=== PATIENT | male | born 1935 | race Caucasian/White ===

== ENCOUNTER 2017-11-26 18:28 | Emergency (ER) | payer OTHER ==
[~2017-11-26] VITALS: Ht 175.3 cm; Wt 94.6 kg
[~2017-11-26 18:28] MED LIST: AMLO5TAB22 PO; ECOT81TA2 PO; GLIM4TAB PO; LOSA25TA31 PO; MELA10CA PO; METF-324 PO; PRAV20 PO; TAB-TAB PO; TYLE500T PO; VITA20002 PO
[2017-11-26 18:31] VITALS: BP 149/76; PULSE 84; RESP 18; TEMP 99.2; O2SAT 93
[2017-11-26] MEDS ORDERED: LOSA25TA PO (19:03)
[2017-11-26] MEDS ORDERED: PRAV20TA2 PO (19:03)
[2017-11-26] MEDS ORDERED: VITA100021 SL (19:03)
[2017-11-26] MEDS ORDERED: CLOP75TA PO (19:03)
[2017-11-26] MEDS ORDERED: METF1000 PO (19:03)
[2017-11-26] MEDS ORDERED: CARV6.252 PO (19:03)
[2017-11-26] MEDS ORDERED: SITA1TAB2 PO (19:03)
[2017-11-26] MEDS ORDERED: GLIM4TAB PO (19:03)
[2017-11-26] MEDS ORDERED: ATOR20TA15 PO (19:03)
[2017-11-26] MEDS ORDERED: HYDR-3133 PO (19:03)
[2017-11-26] MEDS ORDERED: TRAZ50TA12 PO (19:03)
--- NOTE | 2017-11-26 19:23 | PD ---
HPI Chief Complaint: Fall Time Seen by Provider: 19:08 Travel History International Travel<30 days: No Contact w/Intl Traveler<30days: No Traveled to known affect area: No History of Present Illness HPI 82-year-old male complains of feeling unbalanced this evening. Patient states that he fell backwards yesterday and hit the back of the head. Patient denies loss of consciousness. Patient complained of mild aching pain in the back of the head. Patient denies any visual change. Patient denies any neck pain. Patient denies any chest pain or shortness of breath. Patient denies abdominal pain. Patient denies any focal weakness or numbness of the extremity. Patient denies any nausea vomiting. Patient has history of CVA in the past. Patient is on Plavix. Patient also has history of diabetes, CAD status post ME, CABG, hyperlipidemia. PFSH Past Medical History Hx Anticoagulant Therapy: Yes (CLOPEDIGREL) Cancer: No Cardiovascular Problems: Yes (HX [place] 1994 ) High Cholesterol: Yes Cerebrovascular Accident: Yes Diabetes: Yes (TYPE II ) Patient Takes Glucophage: Yes Endocrine: Yes Glaucoma: No Genitourinary: Yes (TURP) Hepatitis: No Hiatal Hernia: No Hypertension: Yes Immune Disorder: No Musculoskeletal: Yes (RIGHT ROTATOR CUFF TEAR; ARTHRITIS ANIRUDH THUMBS ) Neurologic: No Psychiatric: No Respiratory: No Thyroid Disease: No Tetanus Vaccination: < 5 Years Influenza Vaccination: Yes Past Surgical History Abdominal Surgery: Yes (LAP CHOLECY ) AICD: No Body Medical Devices: NONE Cardiac Surgery: Yes (CABG 1994) Cholecystectomy: Yes Coronary Artery Bypass Graft: Yes (X 3) Ear Surgery: No Endocrine Surgery: No Eye Surgery: Yes (BILATERAL CATARACTS WITH LENS IMPLANT ) Genitourinary Surgery: Yes (TURP ) Joint Replacement: No Oral Surgery: No Pacemaker: No Thoracic Surgery: No Other Surgery: Yes Social History Alcohol Use: Yes (OCCAS) Tobacco Use: No Substance Use: No Allergies-Medications (Allergen,Severity, Reaction): Coded Allergies: No Known Allergies (Verified Adverse Reaction, Unknown, 11/26/17) Reported Meds & Prescriptions Reported Meds & Active Scripts Active Reported Vitamin B-12 (Cyanocobalamin) 1,000 Mcg Subl 1,000 Mcg SL DAILY Trazodone (Trazodone HCl) 50 Mg Tab 50 Mg PO HS Pravastatin 20 Mg Tab 20 Mg PO DAILY Metformin (Metformin HCl) 1,000 Mg Tab 1,000 Mg PO DAILY With a meal Losartan (Losartan Potassium) 25 Mg Tab 25 Mg PO DAILY Januvia (Sitagliptin Phosphate) 100 Mg Tab 100 Mg PO DAILY Atorvastatin (Atorvastatin Calcium) 20 Mg Tab 20 Mg PO HS Hydroxyzine HCl 25 Mg Tab 25 Mg PO HS Glimepiride 4 Mg Tab 4 Mg PO DAILY Take with breakfast or first main meal Clopidogrel (Clopidogrel Bisulfate) 75 Mg Tab 75 Mg PO DAILY Carvedilol 6.25 Mg Tab 6.25 Mg PO BID Review of Systems General / Constitutional: No: Fever Eyes: No: Visual changes HENT: No: Headaches Cardiovascular: No: Chest Pain or Discomfort Respiratory: No: Shortness of Breath Gastrointestinal: No: Abdominal Pain Genitourinary: No: Dysuria Musculoskeletal: No: Pain Skin: No Rash Neurologic: No: Weakness Psychiatric: No: Depression Endocrine: No: Polydipsia Hematologic/Lymphatic: No: Easy Bruising Physical Exam Narrative GENERAL: Well-nourished, well-developed patient. SKIN: Focused skin assessment warm/dry. HEAD: Normocephalic. EYES: No scleral icterus. No injection or drainage. Pupil 2 mm equal reactive. NECK: Supple, trachea midline. No JVD or lymphadenopathy. CARDIOVASCULAR: Regular rate and rhythm without murmurs, gallops, or rubs. RESPIRATORY: Breath sounds equal bilaterally. No accessory muscle use. GASTROINTESTINAL: Abdomen soft, non-tender, nondistended. MUSCULOSKELETAL: No cyanosis, or edema. BACK: Nontender without obvious deformity. No CVA tenderness. Neurologic exam: Patient is awake and alert oriented 3. Patient moves all extremity well. No obvious focal neurological deficit. Data Data Last Documented VS Vital Signs Date Time Temp Pulse Resp B/P (MAP) Pulse Ox O2 Delivery O2 Flow Rate FiO2 11/26/17 19:41 93 Room Air 11/26/17 19:40 81 16 11/26/17 18:31 99.2 Orders Orders Electrocardiogram (11/26/17 19:17) Complete Blood Count With Diff (11/26/17 19:17) Comprehensive Metabolic Panel (11/26/17 19:17) Prothrombin Time / Inr (Pt) (11/26/17 19:17) Act Partial Throm Time (Ptt) (11/26/17 19:17) Ct Brain W/O Iv Contrast(Rout) (11/26/17 19:17) Iv Access Insert/Monitor (11/26/17 19:17) Ecg Monitoring (11/26/17 19:17) Oximetry (11/26/17 19:17) Ed Discharge Order (11/26/17 20:15) Labs Laboratory Tests Test 11/26/17 19:20 White Blood Count 8.1 TH/MM3 Red Blood Count 4.63 MIL/MM3 Hemoglobin 14.4 GM/DL Hematocrit 43.1 % Mean Corpuscular Volume 93.0 FL Mean Corpuscular Hemoglobin 31.0 PG Mean Corpuscular Hemoglobin Concent 33.3 % Red Cell Distribution Width 12.0 % Platelet Count 210 TH/MM3 Mean Platelet Volume 7.5 FL Neutrophils (%) (Auto) 70.8 % Lymphocytes (%) (Auto) 12.8 % Monocytes (%) (Auto) 15.2 % Eosinophils (%) (Auto) 0.3 % Basophils (%) (Auto) 0.9 % Neutrophils # (Auto) 5.8 TH/MM3 Lymphocytes # (Auto) 1.0 TH/MM3 Monocytes # (Auto) 1.2 TH/MM3 Eosinophils # (Auto) 0.0 TH/MM3 Basophils # (Auto) 0.1 TH/MM3 CBC Comment DIFF FINAL Differential Comment Prothrombin Time 11.6 SEC Prothromb Time International Ratio 1.1 RATIO Activated Partial Thromboplast Time 24.6 SEC Blood Urea Nitrogen 11 MG/DL Creatinine 1.10 MG/DL Random Glucose 144 MG/DL Total Protein 8.1 GM/DL Albumin 4.1 GM/DL Calcium Level 9.5 MG/DL Alkaline Phosphatase 53 U/L Aspartate Amino Transf (AST/SGOT) 28 U/L Alanine Aminotransferase (ALT/SGPT) 35 U/L Total Bilirubin 2.0 MG/DL Sodium Level 133 MEQ/L Potassium Level 3.9 MEQ/L Chloride Level 98 MEQ/L Carbon Dioxide Level 26.0 MEQ/L Anion Gap 9 MEQ/L Estimat Glomerular Filtration Rate 64 ML/MIN [facility] Medical Decision Making Medical Screen Exam Complete: Yes Emergency Medical Condition: Yes Interpretation(s) 1958 PM. CBC within normal limits. CMP with sodium 133. Total bili 2.0. EKG shows sinus rhythm with T-wave inversion in lead I, lead II, aVL, V2 to V6. Differential Diagnosis Differential diagnosis including contusion, concussion, intracranial hemorrhage. Narrative Course 82-year-old male with head injury. Patient is on Plavix. Diagnosis Primary Impression: Closed head injury Qualified Codes: S09.90XA - Unspecified injury of head, initial encounter Patient Instructions: General Instructions Additional Instructions: Head trauma instructions given. Continue with all medications. Follow-up with personal physician. Return if persistent problem or worse. Tylenol for headache. Med/Other Pt SpecificInfo: No Change to Meds Disposition: 01 DISCHARGE HOME Condition: Stable Curry Colindres MD Nov 26, 2017 19:23
[2017-11-26 19:32] LABS: AUTOMATED NEUTROPHIL # 5.8 TH/MM3 (1.8-7.7); BASOPHIL # 0.1 TH/MM3 (0-0.2); BASOPHIL % 0.9 % (0.0-2.0); EOSINOPHIL % 0.3 % (0.0-4.0); HEMATOCRIT 43.1 % (39.0-51.0); HEMOGLOBIN 14.4 GM/DL (13.0-17.0); LYMPH % 12.8 % (9.0-44.0); MEAN CORPUSCULAR HGB CONC 33.3 % (32.0-36.0); MEAN PLATELET VOLUME 7.5 FL (7.0-11.0); MONO % 15.2 % (0.0-8.0); MONOCYTE # 1.2 TH/MM3 (0-0.9); NEUT % 70.8 % (16.0-70.0); PLATELET COUNT 210 TH/MM3 (150-450); RED BLOOD COUNT 4.63 MIL/MM3 (4.50-5.90); WHITE BLOOD COUNT 8.1 TH/MM3 (4.0-11.0)
[2017-11-26 19:40] VITALS: BP 148/64; PULSE 81; RESP 16; O2SAT 93
[2017-11-26 19:41] VITALS: O2SAT 93
[2017-11-26 19:43] LABS: CHLORIDE 98 MEQ/L (98-107); SODIUM (NA) 133 MEQ/L (136-145)
[2017-11-26 19:46] LABS: ALBUMIN 4.1 GM/DL (3.4-5.0); CALCIUM 9.5 MG/DL (8.5-10.1); GLUCOSE,RANDOM 144 MG/DL (74-106)
[2017-11-26 19:47] LABS: BLOOD UREA NITROGEN 11 MG/DL (7-18)
[2017-11-26 19:48] LABS: INTERNATIONAL NORMALIZED RATIO 1.1 RATIO; PROTHROMBIN TIME - PATIENT 11.6 SEC (9.8-11.6)
[2017-11-26 19:49] LABS: ALT (GPT) 35 U/L (12-78); AST (GOT) 28 U/L (15-37)
[2017-11-26 19:50] LABS: GLOMERULAR FILTRATION RATE 64 ML/MIN (>89)
[2017-11-26 19:51] LABS: TOTAL PROTEIN 8.1 GM/DL (6.4-8.2)
[2017-11-26 19:52] LABS: ALKALINE PHOSPHATASE 53 U/L (45-117)
--- NOTE | 2017-11-26 20:10 | RADRPT ---
EXAM DATE/TIME: 11/26/2017 19:47 [facility] COMPARISON: No previous studies available for comparison. INDICATIONS : Fell hitting back of head. RADIATION DOSE: 60.56 CTDIvol (mGy) MEDICAL HISTORY : Cardiovascular disease. Cerebrovascular disease. Diabetes mellitus type 2. SURGICAL HISTORY : CABG Cholecystectomy. ENCOUNTER: Initial ACUITY: 1 day PAIN SCALE: 0/10 LOCATION: cranial TECHNIQUE: Multiple contiguous axial images were obtained of the head. Using automated exposure control and adj ustment of the mA and/or kV according to patient size, radiation dose was kept as low as reasonably a chievable to obtain optimal diagnostic quality images. DICOM format image data is available electro nically for review and comparison. FINDINGS: There is a remote small infarct in the left frontoparietal region. No new mass, hemorrhage or evidenc e for recent infarct on CT. No acute bony abnormalities. CONCLUSION: 1. No acute findings. Remote small infarct in the left frontoparietal region. Familia Benoit MD on November 26, 2017 at 20:06 Board Certified Radiologist. This report was verified electronically.
--- NOTE | 2017-11-27 16:46 | EKG ---
Date Performed: 11/26/2017 Time Performed: 19:26:19 PTAGE: 82 years EKG: Sinus rhythm WITH OCCASIONAL SUPRAVENTRICULAR PREMATURE COMPLEXES PROBABLE INFERIOR MYOCARDIAL INFARCTION MODERAT E T-WAVE ABNORMALITY, CONSIDER ANTEROLATERAL ISCHEMIA ABNORMAL ECG Compared to PREVIOUS TRACING , the patient has more ST-T wave depression, concerning for ischemia. Cl inical correlation suggested. PREVIOUS TRACIN07/15/2015 22.14 DOCTOR: Sheri Aguayo Interpretating Date/Time 11/27/2017 16:45:36
== END 2017-11-26 20:25 | disposition home or self-care (01) ==
LOC: PHEFT 18:28
DX: S09.90XA Unspecified injury of head, initial encounter (principal); R94.31 Abnormal electrocardiogram [ECG] [EKG]; W19.XXXA Unspecified fall, initial encounter; I10 Essential (primary) hypertension; I25.10 Atherosclerotic heart disease of native coronary artery without angina pectoris; I25.2 Old myocardial infarction; E11.9 Type 2 diabetes mellitus without complications; E78.5 Hyperlipidemia, unspecified; E78.00 Pure hypercholesterolemia, unspecified; Z95.1 Presence of aortocoronary bypass graft; Z86.73 Personal history of transient ischemic attack (TIA), and cerebral infarction without residual deficits; Z79.02 Long term (current) use of antithrombotics/antiplatelets; Z79.84 Long term (current) use of oral hypoglycemic drugs; Z79.899 Other long term (current) drug therapy
CPT/HCPCS: 70450; 80053; 85025; 85610; 85730; 93005; 99285

== ENCOUNTER 2017-12-25 18:11 | Emergency (ER) | payer OTHER ==
[~2017-12-25] VITALS: Ht 175.3 cm; Wt 93.0 kg
[~2017-12-25 18:11] MED LIST changes: -AMLO5TAB22 PO; +ATOR20TA15 PO; +CARV6.252 PO; +CLOP75TA PO; -ECOT81TA2 PO; +HYDR-3133 PO; +LOSA25TA PO; -LOSA25TA31 PO; -MELA10CA PO; -METF-324 PO; +METF1000 PO; -PRAV20 PO; +PRAV20TA2 PO; +SITA1TAB2 PO; -TAB-TAB PO; +TRAZ50TA12 PO; -TYLE500T PO; +VITA100021 SL; -VITA20002 PO
[2017-12-25 18:24] VITALS: BP 135/61; PULSE 78; RESP 20; TEMP 98.7; O2SAT 94
--- NOTE | 2017-12-25 18:53 | PD ---
HPI Chief Complaint: Fall Time Seen by Provider: 18:33 Travel History International Travel<30 days: No Contact w/Intl Traveler<30days: No Traveled to known affect area: No History of Present Illness HPI Patient presents to the emergency department complaining of fall. Fell approximately 2 hours ago in his closet and could not get up because his legs are weak. Patient states that he bent down to get something and fell over and landed on his buttocks. Family states that he was here recently for falls as he has had recurrent falls. They followed up with primary care doctor they stated that they were told that it was secondary to advanced age. She states that he did not hit his head and denies any pain. He was able to get on his knees and push himself up that way. He denies chest pain, dyspnea, fever, chills, nausea, vomiting, headache, numbness/ tingling, vision change. He does report nasal and chest congestion and cough secondary to URI. Without physical complaints. PFSH Past Medical History Hx Anticoagulant Therapy: Yes (CLOPEDIGREL) Cancer: No Cardiovascular Problems: Yes (HX [place] 1994 ) High Cholesterol: Yes Cerebrovascular Accident: Yes Diabetes: Yes (TYPE II ) Patient Takes Glucophage: Yes (metformin 0800 this am) Endocrine: Yes Glaucoma: No Genitourinary: Yes (TURP) Hepatitis: No Hiatal Hernia: No Hypertension: Yes Immune Disorder: No Musculoskeletal: Yes (RIGHT ROTATOR CUFF TEAR; ARTHRITIS ANIRUDH THUMBS ) Neurologic: No Psychiatric: No Respiratory: No Thyroid Disease: No Tetanus Vaccination: Unknown Influenza Vaccination: Yes Past Surgical History Abdominal Surgery: Yes (LAP CHOLECY ) AICD: No Body Medical Devices: NONE Cardiac Surgery: Yes (CABG 1994) Cholecystectomy: Yes Coronary Artery Bypass Graft: Yes (X 3) Ear Surgery: No Endocrine Surgery: No Eye Surgery: Yes (BILATERAL CATARACTS WITH LENS IMPLANT ) Genitourinary Surgery: Yes (TURP ) Joint Replacement: No Oral Surgery: No Pacemaker: No Thoracic Surgery: No Other Surgery: Yes Social History Alcohol Use: Yes (OCCAS) Tobacco Use: No Substance Use: No Allergies-Medications (Allergen,Severity, Reaction): Coded Allergies: No Known Allergies (Verified Adverse Reaction, Unknown, 12/25/17) Reported Meds & Prescriptions Reported Meds & Active Scripts Active Levaquin (Levofloxacin) 750 Mg Tablet 750 Mg PO DAILY 5 Days Reported Vitamin B-12 (Cyanocobalamin) 1,000 Mcg Subl 1,000 Mcg SL DAILY Trazodone (Trazodone HCl) 50 Mg Tab 50 Mg PO HS Pravastatin 20 Mg Tab 20 Mg PO DAILY Metformin (Metformin HCl) 1,000 Mg Tab 1,000 Mg PO DAILY With a meal Losartan (Losartan Potassium) 25 Mg Tab 25 Mg PO DAILY Januvia (Sitagliptin Phosphate) 100 Mg Tab 100 Mg PO DAILY Atorvastatin (Atorvastatin Calcium) 20 Mg Tab 20 Mg PO HS Hydroxyzine HCl 25 Mg Tab 25 Mg PO HS Glimepiride 4 Mg Tab 4 Mg PO DAILY Take with breakfast or first main meal Clopidogrel (Clopidogrel Bisulfate) 75 Mg Tab 75 Mg PO DAILY Carvedilol 6.25 Mg Tab 6.25 Mg PO BID Review of Systems Except as stated in HPI: all other systems reviewed are Neg Physical Exam Narrative GENERAL: No acute distress. SKIN: Focused skin assessment warm/dry. No bruising noted HEAD: Atraumatic. Normocephalic. EYES: Extraocular muscles intact bilaterally. No scleral icterus. No injection or drainage. ENT: No nasal bleeding or discharge. Mucous membranes pink and moist. NECK: Trachea midline. No JVD. No focal C-spine tenderness. CARDIOVASCULAR: Regular rate and rhythm. No murmur appreciated. RESPIRATORY: No accessory muscle use. Coarse breath sounds bilaterally appear. Breath sounds equal bilaterally. GASTROINTESTINAL: Abdomen soft, non-tender, nondistended. MUSCULOSKELETAL: No obvious deformities. No clubbing. No cyanosis. No edema. Pelvis stable. No focal T or L-spine tenderness. NEUROLOGICAL: Awake and alert. No obvious cranial nerve deficits. Motor grossly within normal limits. Normal speech. 5 out of 5 bilateral upper extremity and lower extremity. PSYCHIATRIC: Appropriate mood and affect; insight and judgment normal. Data Data Last Documented VS Vital Signs Date Time Temp Pulse Resp B/P (MAP) Pulse Ox O2 Delivery O2 Flow Rate FiO2 12/25/17 18:24 98.7 78 20 135/61 (85) [address] Brain W/O Iv Contrast(Rout) (12/25/17 18:47) Chest, Pa & Lat (12/25/17 18:47) MDM Medical Decision Making Medical Screen Exam Complete: Yes Emergency Medical Condition: Yes Interpretation(s) Last Impressions Head CT 12/25/17 0187 Signed Impressions: Service Date/Time: Monday, December 25, 2017 18:57 - CONCLUSION: 1. No focal or acute intracranial hemorrhage. 2. Stable CT brain compared to the prior study. Moses Abdullahi MD Chest X-Ray 12/25/17 6007 Signed Impressions: Service Date/Time: Monday, December 25, 2017 18:50 - CONCLUSION: No acute disease. No significant change has occurred. Moses Abdullahi MD Differential Diagnosis CVA, intracranial bleed, fall, musculoskeletal pain, weakness Narrative Course Patient presents to the emergency department status post fall. He denies hitting his head no LOC but he is on Plavix. Complaining of URI symptoms, has any other physical ailments. Will check head CT and chest x-ray. Physician Communication Physician Communication Called Dr. Romero's answering service. Spoke to Dr. Booth who was at the [facility] office (?). Advised that she would stand a note to Dr. Romero and that the patient should follow-up with him on Wednesday. Diagnosis Primary Impression: Fall Qualified Codes: W19.XXXA - Unspecified fall, initial encounter Additional Impression: Upper respiratory infection Qualified Codes: J06.9 - Acute upper respiratory infection, unspecified Patient Instructions: General Instructions Additional Instructions: 1. Follow-up with Dr. Tan on Wednesday.2. Return to the emergency department immediately for fever, vomiting, chest pain, shortness breath, numbness or tingling, or for any new/worrisome/worsening symptoms. Med/Other Pt SpecificInfo: Prescription(s) given Scripts Levofloxacin (Levaquin) 750 Mg Tablet 750 MG PO DAILY for Infection for 5 Days, #5 TAB 0 Refills Prov: Trudi Cruz MD 12/25/17 Disposition: 01 DISCHARGE HOME Condition: Stable Trudi Cruz MD December 25, 2017 18:53
--- NOTE | 2017-12-25 19:08 | RADRPT ---
EXAM DATE/TIME: 12/25/2017 18:50 [facility] COMPARISON: CHEST SINGLE AP, July 15, 2015, 22:07. INDICATIONS : Cough. MEDICAL HISTORY : Hypertension. Chronic obstructive pulmonary disease. Congestive heart failure. Cardiovascular dis ease. Cerebrovascular disease. Diabetes mellitus type 2. SURGICAL HISTORY : CABG Cholecystectomy. ENCOUNTER: Initial ACUITY: 4 - 6 days PAIN SCORE: 0/10 LOCATION: Bilateral chest FINDINGS: PA and lateral views of the chest demonstrate the lungs to be symmetrically aerated without evidence of mass, infiltrate or effusion. The heart size is within normal limits. There is evidence of previo us cardiothoracic surgery.. Osseous structures are intact. There are some fractures involving some o f the sternal wires. No significant changes compared to the prior study. CONCLUSION: No acute disease. No significant change has occurred. Moses Abdullahi MD on December 25, 2017 at 19:05 Board Certified Radiologist. This report was verified electronically.
--- NOTE | 2017-12-25 19:18 | RADRPT ---
EXAM DATE/TIME: 12/25/2017 18:57 [facility] COMPARISON: CT BRAIN W/O CONTRAST, November 26, 2017, 19:47. INDICATIONS : Trauma, fall today. RADIATION DOSE: 56.24 CTDIvol (mGy) MEDICAL HISTORY : Stroke. Diabetes mellitus type 2. Myocardial infarction. SURGICAL HISTORY : CABG ENCOUNTER: Initial ACUITY: 1 day PAIN SCALE: 0/10 LOCATION: Bilateral head TECHNIQUE: Multiple contiguous axial images were obtained of the head. Using automated exposure control and adj ustment of the mA and/or kV according to patient size, radiation dose was kept as low as reasonably a chievable to obtain optimal diagnostic quality images. DICOM format image data is available electro nically for review and comparison. FINDINGS: CEREBRUM: The ventricles are normal for age. Stable bilateral cortical atrophy. There is a stable old infarct i n the left mid parietal lobe. No evidence of midline shift, mass lesion, hemorrhage or acute infarcti on. No extra-axial fluid collections are seen. POSTERIOR FOSSA: The cerebellum and brainstem are intact. The 4th ventricle is midline. The cerebellopontine angle i s unremarkable. EXTRACRANIAL: The visualized portion of the orbits is intact. SKULL: The calvaria is intact. No evidence of skull fracture. CONCLUSION: 1. No focal or acute intracranial hemorrhage. 2. Stable CT brain compared to the prior study. Moses Abdullahi MD on December 25, 2017 at 19:15 Board Certified Radiologist. This report was verified electronically.
[2017-12-25] MEDS ORDERED: LEVA750T9 PO (20:17)
[2017-12-25 20:25] VITALS: O2SAT 90
[2017-12-25 20:26] VITALS: RESP 20; O2SAT 96
[2017-12-25] MEDS ORDERED: SODIUM CHLORIDE 0.9% FLUSH 10 ML FLUSH IVF PRN (20:30)
[2017-12-25 20:39] VITALS: RESP 20; O2SAT 89
[2017-12-25 20:45] LABS: AUTOMATED NEUTROPHIL # 6.6 TH/MM3 (1.8-7.7); BASOPHIL # 0.1 TH/MM3 (0-0.2); BASOPHIL % 0.8 % (0.0-2.0); EOSINOPHIL % 0.5 % (0.0-4.0); HEMATOCRIT 41.9 % (39.0-51.0); LYMPH % 10.6 % (9.0-44.0); MEAN CELL VOLUME 94.2 FL (80.0-100.0); MEAN CORPUSCULAR HEMOGLOBIN 31.4 PG (27.0-34.0); MEAN CORPUSCULAR HGB CONC 33.3 % (32.0-36.0); MEAN PLATELET VOLUME 7.2 FL (7.0-11.0); MONO % 13.9 % (0.0-8.0); MONOCYTE # 1.3 TH/MM3 (0-0.9); NEUT % 74.2 % (16.0-70.0); PLATELET COUNT 189 TH/MM3 (150-450); RED BLOOD COUNT 4.45 MIL/MM3 (4.50-5.90); RED CELL DISTRIBUTION WIDTH 12.1 % (11.6-17.2)
[2017-12-25 20:52] LABS: CHLORIDE 99 MEQ/L (98-107); SODIUM (NA) 134 MEQ/L (136-145)
[2017-12-25 20:55] LABS: ALBUMIN 3.8 GM/DL (3.4-5.0); BICARBONATE 26.8 MEQ/L (21.0-32.0)
[2017-12-25 20:56] LABS: BLOOD UREA NITROGEN 11 MG/DL (7-18); GLUCOSE,RANDOM 199 MG/DL (74-106); MAGNESIUM 1.7 MG/DL (1.5-2.5)
[2017-12-25 20:59] LABS: ALT (GPT) 32 U/L (12-78); AST (GOT) 27 U/L (15-37); GLOMERULAR FILTRATION RATE 58 ML/MIN (>89)
[2017-12-25 21:00] LABS: TOTAL BILIRUBIN ADULT 2.3 MG/DL (0.2-1.0); TOTAL PROTEIN 7.9 GM/DL (6.4-8.2)
[2017-12-25 21:01] LABS: ALKALINE PHOSPHATASE 53 U/L (45-117)
[2017-12-25 21:35] VITALS: BP 126/56
== END 2017-12-25 21:36 | disposition home or self-care (01) ==
LOC: PHED 18:11
DX: R29.6 Repeated falls (principal); J06.9 Acute upper respiratory infection, unspecified; R54 Age-related physical debility; E78.00 Pure hypercholesterolemia, unspecified; E11.9 Type 2 diabetes mellitus without complications; I11.0 Hypertensive heart disease with heart failure; I50.9 Heart failure, unspecified; I25.2 Old myocardial infarction
CPT/HCPCS: 36600; 70450; 71046; 80053; 82805; 83735; 85025; 99285

== ENCOUNTER 2017-12-26 21:40 | Inpatient (IN) | payer OTHER, MEDICAID, MEDICARE ==
[~2017-12-26] VITALS: Ht 175.3 cm; Wt 195.5 kg
[2017-12-26 21:40] VITALS: BP 179/72; PULSE 88; RESP 18; TEMP 97.7; O2SAT 94
[~2017-12-26 21:40] MED LIST changes: +LEVA750T9 PO
[2017-12-26 22:05] VITALS: TEMP 100.1
[2017-12-26] MEDS ORDERED: SODIUM CHLOR 0.9% 1000 ML INJ 1,000 ML IV ONE (22:07)
[2017-12-26] MEDS ORDERED: AZITHROMYCIN INJ 500 MG in SODIUM CHLOR 0.9% 250 ML INJ 250 ML IV ONE (22:15)
[2017-12-26] MEDS ORDERED: cefTRIAXone INJ 1,000 MG in SODIUM CHLORIDE 0.9% INJ 100 ML IV ONE (22:15)
[2017-12-26] MEDS ORDERED: ACETAMINOPHEN 325 MG TAB PO ONE (22:15)
--- NOTE | 2017-12-26 22:15 | PD ---
HPI Chief Complaint: Respiratory Symptoms Time Seen by Provider: 21:59 Travel History International Travel<30 days: No Contact w/Intl Traveler<30days: No Traveled to known affect area: No History of Present Illness HPI 82-year-old male with history of hypertension, hyperlipidemia, CAD, CABG, diabetes, brought in by ambulance from home for evaluation of generalized weakness, unsteady gait, cough. The patient was seen in the emergency department yesterday and was evaluated for a fall. He was noted that his O2 saturation was low and he has no history of pulmonary disease. Chest x-ray was performed and showed no acute disease. CT of the head was also performed and shows no focal or acute intracranial hemorrhage, stable CT brain compared to the prior study. Basic labs were also performed, and the patient was discharged home with a prescription for Levaquin. Patient reports that he has had a cough for the last 4 days. Cough is nonproductive. He denies hemoptysis. No chest pain. No history of DVT or PE. No abdominal pain, nausea , vomiting, or diarrhea. No urinary symptoms. PFSH Past Medical History Hx Anticoagulant Therapy: Yes (CLOPEDIGREL) Cancer: No Cardiovascular Problems: Yes (HX ME 1994 ) High Cholesterol: Yes Cerebrovascular Accident: Yes Diabetes: Yes (TYPE II ) Patient Takes Glucophage: Yes Endocrine: Yes Gastrointestinal Disorders: No Glaucoma: No Genitourinary: Yes (TURP) Hepatitis: No Hiatal Hernia: No Hypertension: No Immune Disorder: No Medical other: No Musculoskeletal: Yes (RIGHT ROTATOR CUFF TEAR; ARTHRITIS ANIRUDH THUMBS ) Neurologic: No Psychiatric: No Respiratory: No Thyroid Disease: No ?: Not Past Surgical History Abdominal Surgery: Yes (LAP CHOLECY ) AICD: No Body Medical Devices: NONE Cardiac Surgery: Yes (CABG 1994) Cholecystectomy: Yes Coronary Artery Bypass Graft: Yes (X 3) Ear Surgery: No Endocrine Surgery: No Eye Surgery: Yes (BILATERAL CATARACTS WITH LENS IMPLANT ) Genitourinary Surgery: Yes (TURP ) Joint Replacement: No Neurologic Surgery: No Oral Surgery: No Pacemaker: No Thoracic Surgery: No Other Surgery: Yes Social History Alcohol Use: Yes (OCCAS) Tobacco Use: No Substance Use: No Allergies-Medications (Allergen,Severity, Reaction): Coded Allergies: No Known Allergies (Verified Adverse Reaction, Unknown, 12/26/17) Reported Meds & Prescriptions Reported Meds & Active Scripts Active Levaquin (Levofloxacin) 750 Mg Tablet 750 Mg PO DAILY 5 Days Reported Vitamin B-12 (Cyanocobalamin) 1,000 Mcg Subl 1,000 Mcg SL DAILY Trazodone (Trazodone HCl) 50 Mg Tab 50 Mg PO HS Pravastatin 20 Mg Tab 20 Mg PO DAILY Metformin (Metformin HCl) 1,000 Mg Tab 1,000 Mg PO DAILY With a meal Losartan (Losartan Potassium) 25 Mg Tab 25 Mg PO DAILY Januvia (Sitagliptin Phosphate) 100 Mg Tab 100 Mg PO DAILY Atorvastatin (Atorvastatin Calcium) 20 Mg Tab 20 Mg PO HS Hydroxyzine HCl 25 Mg Tab 25 Mg PO HS Glimepiride 4 Mg Tab 4 Mg PO DAILY Take with breakfast or first main meal Clopidogrel (Clopidogrel Bisulfate) 75 Mg Tab 75 Mg PO DAILY Carvedilol 6.25 Mg Tab 6.25 Mg PO BID Review of Systems Except as stated in HPI: all other systems reviewed are Neg Physical Exam Narrative GENERAL: Well-developed, well-nourished, awake, alert, no apparent distress. SKIN: Focused skin assessment warm/dry. No rashes. HEAD: Atraumatic. Normocephalic. EYES: Pupils equal and round. No scleral icterus. No injection or drainage. ENT: Mucous membranes pink and dry. NECK: Trachea midline. No JVD. CARDIOVASCULAR: Regular rate and rhythm. RESPIRATORY: No accessory muscle use. Bilateral rhonchi without wheezes or rales. Breath sounds equal bilaterally. GASTROINTESTINAL: Abdomen soft, non-tender, nondistended. MUSCULOSKELETAL: No obvious deformities. No clubbing. No cyanosis. No edema. NEUROLOGICAL: Awake and alert. No obvious cranial nerve deficits. Motor grossly within normal limits. Normal speech. PSYCHIATRIC: Appropriate mood and affect; insight and judgment normal. Data Data Last Documented VS Vital Signs Date Time Temp Pulse Resp B/P (MAP) Pulse Ox O2 Delivery O2 Flow Rate FiO2 12/26/17 22:05 100.1 12/26/17 21:45 93 Nasal Cannula 2.00 12/26/17 21:45 20 12/26/17 21:40 88 179/72 (107) Orders Orders Sepsis Workup Initiated (12/26/17 ) Complete Blood Count With Diff (12/26/17 22:07) Comprehensive Metabolic Panel (12/26/17 22:07) Lactic Acid Sepsis Protocol (12/26/17 22:07) Urinalysis - C+S If Indicated (12/26/17 22:07) Blood Culture (12/26/17 22:07) Chest, Pa & Lat (12/26/17 22:) Ecg Monitoring (12/26/17 22:07) Iv Access Insert/Monitor (12/26/17 22:07) Oximetry (12/26/17 22:07) Oxygen Administration (12/26/17 22:07) Acetaminophen (Tylenol) (12/26/17 22:15) Sodium Chlor 0.9% 1000 Ml Inj (Ns 1000 M (12/26/17 22:07) Ceftriaxone Inj (Rocephin Inj) (12/26/17 22:15) Azithromycin Inj (Zithromax Inj) (12/26/17 22:15) Influenzae A/B Antigen (12/26/17 22:) Electrocardiogram (12/26/17 ) Ckmb (Isoenzyme) Profile (12/26/17 22:) Troponin I (12/26/17 22:) Ct Pulmonary Angiogram (12/26/17 ) Labs Laboratory Tests Test 12/26/17 22:35 White Blood Count 8.1 TH/MM3 Red Blood Count 4.51 MIL/MM3 Hemoglobin 14.0 GM/DL Hematocrit 42.3 % Mean Corpuscular Volume 93.8 FL Mean Corpuscular Hemoglobin 31.1 PG Mean Corpuscular Hemoglobin Concent 33.1 % Red Cell Distribution Width 11.6 % Platelet Count 184 TH/MM3 Mean Platelet Volume 7.4 FL Neutrophils (%) (Auto) 80.3 % Lymphocytes (%) (Auto) 6.5 % Monocytes (%) (Auto) 13.0 % Eosinophils (%) (Auto) 0.0 % Basophils (%) (Auto) 0.2 % Neutrophils # (Auto) 6.5 TH/MM3 Lymphocytes # (Auto) 0.5 TH/MM3 Monocytes # (Auto) 1.1 TH/MM3 Eosinophils # (Auto) 0.0 TH/MM3 Basophils # (Auto) 0.0 TH/MM3 CBC Comment DIFF FINAL Differential Comment Blood Urea Nitrogen 11 MG/DL Creatinine 1.10 MG/DL Random Glucose 285 MG/DL Total Protein 8.0 GM/DL Albumin 3.7 GM/DL Calcium Level 9.0 MG/DL Alkaline Phosphatase 50 U/L Aspartate Amino Transf (AST/SGOT) 41 U/L Alanine Aminotransferase (ALT/SGPT) 32 U/L Total Bilirubin 2.9 MG/DL Sodium Level 128 MEQ/L Potassium Level 3.9 MEQ/L Chloride Level 92 MEQ/L Carbon Dioxide Level 28.1 MEQ/L Anion Gap 8 MEQ/L Estimat Glomerular Filtration Rate 64 ML/MIN Lactic Acid Level 2.1 mmol/L Troponin I 0.09 NG/ML MDM Medical Decision Making Medical Screen Exam Complete: Yes Emergency Medical Condition: Yes Medical Record Reviewed: Yes Interpretation(s) EKG: Sinus, rate 84, normal axis, normal intervals, T-wave inversions and slight ST depressions in precordial leads as well as lateral limb leads, unchanged from prior Differential Diagnosis Pneumonia, sepsis, UTI, dehydration, metabolic abnormality, PE, ACS Narrative Course Initial vital signs show heart rate 80, blood pressure 179/72, pulse ox 94% on 2 L nasal cannula, oral temp of 100.1F. When the patient is taken off of nasal cannula that he arrived with by ambulance , his O2 saturation drops to 89% on room air. Patient was empirically written for IV Rocephin and IV azithromycin for likely pneumonia. CBC: WBC 8.1, hemoglobin 14, hematocrit 42.3, platelets 184, neutrophils 80%, lymphocytes 6.5%, monocytes 13% CMP is remarkable for sodium 120, chloride 92, random glucose 285. Troponin is 0.09. Lactic acid is 2.1. CT pulmonary angiogram ordered to rule out PE. At approximately 11:00 PM at the end of my shift the patient was signed out to Dr. Rodriguez to follow-up with chest x-ray, CT pulmonary angiogram, and likely admit the patient. Win Briceno MD December 26, 2017 22:15
[2017-12-26 22:55] LABS: AUTOMATED NEUTROPHIL # 6.5 TH/MM3 (1.8-7.7); BASOPHIL % 0.2 % (0.0-2.0); HEMATOCRIT 42.3 % (39.0-51.0); LYMPH % 6.5 % (9.0-44.0); LYMPHOCYTE # 0.5 TH/MM3 (1.0-4.8); MEAN CELL VOLUME 93.8 FL (80.0-100.0); MEAN CORPUSCULAR HEMOGLOBIN 31.1 PG (27.0-34.0); MEAN CORPUSCULAR HGB CONC 33.1 % (32.0-36.0); MEAN PLATELET VOLUME 7.4 FL (7.0-11.0); MONOCYTE # 1.1 TH/MM3 (0-0.9); NEUT % 80.3 % (16.0-70.0); PLATELET COUNT 184 TH/MM3 (150-450); RED BLOOD COUNT 4.51 MIL/MM3 (4.50-5.90); RED CELL DISTRIBUTION WIDTH 11.6 % (11.6-17.2); WHITE BLOOD COUNT 8.1 TH/MM3 (4.0-11.0)
[2017-12-26 23:03] LABS: CHLORIDE 92 MEQ/L (98-107); SODIUM (NA) 128 MEQ/L (136-145)
[2017-12-26 23:06] LABS: ALBUMIN 3.7 GM/DL (3.4-5.0); BICARBONATE 28.1 MEQ/L (21.0-32.0)
[2017-12-26 23:07] LABS: BLOOD UREA NITROGEN 11 MG/DL (7-18); GLUCOSE,RANDOM 285 MG/DL (74-106)
[2017-12-26 23:10] LABS: ALT (GPT) 32 U/L (12-78); AST (GOT) 41 U/L (15-37); GLOMERULAR FILTRATION RATE 64 ML/MIN (>89)
[2017-12-26 23:11] LABS: TOTAL BILIRUBIN ADULT 2.9 MG/DL (0.2-1.0)
[2017-12-26 23:12] LABS: ALKALINE PHOSPHATASE 50 U/L (45-117); LACTIC ACID SEPSIS PROTOCOL 2.1 mmol/L (0.4-2.0)
[2017-12-26 23:14] LABS: TROPONIN I 0.09 NG/ML (0.02-0.05)
--- NOTE | 2017-12-26 23:47 | RADRPT ---
EXAM DATE/TIME: 12/26/2017 22:59 [facility] COMPARISON: CHEST PA & LAT, December 25, 2017, 18:50. INDICATIONS : Shortness of breath, cough. MEDICAL HISTORY : Hypertension. Chronic obstructive pulmonary disease. Congestive heart failure. SURGICAL HISTORY : CABG. ENCOUNTER: Initial ACUITY: 4 - 6 days PAIN SCORE: 0/10 LOCATION: Bilateral chest FINDINGS: PA and lateral views of the chest demonstrate basilar density, probably atelectasis. Elevated right h emidiaphragm. There may be some basilar fibrosis. CT pending. Previous sternotomy. Mild peribronchial thickening. CONCLUSION: 1. Peribronchial thickening without focal infiltrate. Basal atelectasis or mild fibrotic changes. Familia Benoit MD on December 26, 2017 at 23:44 Board Certified Radiologist. This report was verified electronically.
[2017-12-27] VITALS (11 sets, daily range): BP systolic 120–158; BP diastolic 60–73; PULSE 68–91; RESP 15–22; TEMP 97.3–101.9; O2SAT 92–97
[2017-12-27] MEDS ORDERED: IOHEXOL 350 MG/ML 10 ML VIAL (for RAD DIAG) IVCONTRAST ONE (00:18)
--- NOTE | 2017-12-27 00:41 | RADRPT ---
EXAM DATE/TIME: 12/26/2017 23:59 [facility] COMPARISON: No previous studies available for comparison. INDICATIONS : Weakness. IV CONTRAST: 75 cc Omnipaque 350 (iohexol) IV RADIATION DOSE: 19.89 CTDIvol (mGy) MEDICAL HISTORY : Diabetes mellitus type 2. Cardiovascular disease SURGICAL HISTORY : Cholecystectomy. ENCOUNTER: Initial ACUITY: 1 day PAIN SCALE: 0/10 LOCATION: chest TECHNIQUE: Volumetric scanning of the chest was performed using a pulmonary embolism protocol MIP images were re constructed. Using automated exposure control and adjustment of the mA and/or kV according to patien t size, radiation dose was kept as low as reasonably achievable to obtain optimal diagnostic quality images. DICOM format image data is available electronically for review and comparison. Follow-up recommendations for detected pulmonary nodules are based at a minimum on nodule size and pa tient risk factors according to Fleischner Society Guidelines. FINDINGS: No filling defects identified to suggest pulmonary embolic disease. There is a focal area of consolidation in the posterior segment left upper lobe measuring up to about 3 cm in diameter. There is some associated left hilar adenopathy and subcarinal adenopathy measuring about 1.8 cm in short axis diameter. No right-sided lung consolidation. Dependent atelectasis in the lungs. No pleural or pericardial effu angel. Dense coronary calcifications. No acute findings in the upper abdomen. CONCLUSION: 1. Negative for pulmonary embolus. 2. Focal consolidation left upper lobe associated with mild left hilar and subcarinal adenopathy. Dif ferential diagnosis is focal pneumonic infiltrate with reactive adenopathy. Cannot exclude neoplasm. Recommend close followup CT in the next several weeks. If findings do not resolve then consider PET C T for evaluation of neoplasm. Familia Benoit MD on December 27, 2017 at 0:34 Board Certified Radiologist. This report was verified electronically.
[2017-12-27] MEDS ORDERED: LACTULOSE SYRUP 20 GM/30 ML CUP PO PRN (01:00)
[2017-12-27] MEDS ORDERED: MAGNESIUM HYDROXIDE SUSP 30 ML CUP PO PRN (01:00)
[2017-12-27] MEDS ORDERED: DEXTROSE 50% IN WATER 50 ML VIAL(D50) IV PUSH PRN (01:00)
[2017-12-27] MEDS ORDERED: BISACODYL 10 MG SUPP RECTAL PRN (01:00)
[2017-12-27] MEDS ORDERED: GLUCAGON 1 MG/ML VIAL OTHER PRN (01:00)
[2017-12-27] MEDS ORDERED: ONDANSETRON ODT 4 MG TAB PO PRN (01:00)
[2017-12-27] MEDS ORDERED: SENNOSIDES 8.6 MG TAB PO PRN (01:00)
[2017-12-27] MEDS ORDERED: NALOXONE HCL 0.4 MG/ML AMP IV PUSH PRN (01:00)
--- NOTE | 2017-12-27 01:02 | PD ---
Physical Exam Date Seen by Provider: December 26, 2017 Time Seen by Provider: 23:00 Narrative Patient signed out to me by Dr. Briceno at 11 PM, please see his notes for further details. Awaiting CTA and chest x-ray, suspected pneumonia. Also has elevated troponin and low sodium. Laboratory Tests Test 12/26/17 22:35 Neutrophils (%) (Auto) 80.3 % (16.0-70.0) Lymphocytes (%) (Auto) 6.5 % (9.0-44.0) Monocytes (%) (Auto) 13.0 % (0.0-8.0) Lymphocytes # (Auto) 0.5 TH/MM3 (1.0-4.8) Monocytes # (Auto) 1.1 TH/MM3 (0-0.9) Random Glucose 285 MG/DL (74-106) Aspartate Amino Transf (AST/SGOT) 41 U/L (15-37) Total Bilirubin 2.9 MG/DL (0.2-1.0) Sodium Level 128 MEQ/L (136-145) Chloride Level 92 MEQ/L (98-107) Estimat Glomerular Filtration Rate 64 ML/MIN (>89) Lactic Acid Level 2.1 mmol/L (0.4-2.0) Total Creatine Kinase 1048 U/L (39-308) Troponin I 0.09 NG/ML (0.02-0.05) Last [address] Angiography 12/27/17 0016 Signed Impressions: Service Date/Time: Tuesday, December 26, 2017 23:59 - CONCLUSION: 1. Negative for pulmonary embolus. 2. Focal consolidation left upper lobe associated with mild left hilar and subcarinal adenopathy. Differential diagnosis is focal pneumonic infiltrate with reactive adenopathy. Cannot exclude neoplasm. Recommend close followup CT in the next several weeks. If findings do not resolve then consider PET CT for evaluation of neoplasm. Familia Benoit MD Chest X-Ray 12/26/17 [id number] Signed Impressions: Service Date/Time: Tuesday, December 26, 2017 22:59 - CONCLUSION: 1. Peribronchial thickening without focal infiltrate. Basal atelectasis or mild fibrotic changes. Familia Benoit MD CTA did not show signs of PE. However, there are signs of a left-sided pneumonia. Antibiotics had been given earlier in the ER. At this point, my plan would be to admit the patient for further treatment. Case was discussed with Dr. Brar for admission. Data Data Last Documented VS Vital Signs Date Time Temp Pulse Resp B/P (MAP) Pulse Ox O2 Delivery O2 Flow Rate FiO2 12/27/17 00:17 99.5 91 18 138/68 (91) 94 Nasal Cannula 2.00 Orders Orders Sepsis Workup Initiated (12/26/17 ) Complete Blood Count With Diff (12/26/17 22:07) Comprehensive Metabolic Panel (12/26/17 22:07) Lactic Acid Sepsis Protocol (12/26/17 22:07) Urinalysis - C+S If Indicated (12/26/17 22:07) Blood Culture (12/26/17 22:07) Chest, Pa & Lat (12/26/17 22:07) Ecg Monitoring (12/26/17 22:07) Iv Access Insert/Monitor (12/26/17 22:07) Oximetry (12/26/17 22:07) Oxygen Administration (12/26/17 22:07) Acetaminophen (Tylenol) (12/26/17 22:15) Sodium Chlor 0.9% 1000 Ml Inj (Ns 1000 M (12/26/17 22:07) Ceftriaxone Inj (Rocephin Inj) (12/26/17 22:15) Azithromycin Inj (Zithromax Inj) (12/26/17 22:15) Influenzae A/B Antigen (12/26/17 22:07) Electrocardiogram (12/26/17 ) Ckmb (Isoenzyme) Profile (12/26/17 22:07) Troponin I (12/26/17 22:07) CKMB (12/26/17 22:35) CKMB% (12/26/17 22:35) Ct Pulmonary Angiogram (12/27/17 00:16) Iohexol 350 Inj (Omnipaque 350 Inj) (12/27/17 00:18) Admit Order (Ed Use Only) (12/27/17 00:59) Labs Laboratory Tests Test 12/26/17 22:35 White Blood Count 8.1 TH/MM3 Red Blood Count 4.51 MIL/MM3 Hemoglobin 14.0 GM/DL Hematocrit 42.3 % Mean Corpuscular Volume 93.8 FL Mean Corpuscular Hemoglobin 31.1 PG Mean Corpuscular Hemoglobin Concent 33.1 % Red Cell Distribution Width 11.6 % Platelet Count 184 TH/MM3 Mean Platelet Volume 7.4 FL Neutrophils (%) (Auto) 80.3 % Lymphocytes (%) (Auto) 6.5 % Monocytes (%) (Auto) 13.0 % Eosinophils (%) (Auto) 0.0 % Basophils (%) (Auto) 0.2 % Neutrophils # (Auto) 6.5 TH/MM3 Lymphocytes # (Auto) 0.5 TH/MM3 Monocytes # (Auto) 1.1 TH/MM3 Eosinophils # (Auto) 0.0 TH/MM3 Basophils # (Auto) 0.0 TH/MM3 CBC Comment DIFF FINAL Differential Comment Blood Urea Nitrogen 11 MG/DL Creatinine 1.10 MG/DL Random Glucose 285 MG/DL Total Protein 8.0 GM/DL Albumin 3.7 GM/DL Calcium Level 9.0 MG/DL Alkaline Phosphatase 50 U/L Aspartate Amino Transf (AST/SGOT) 41 U/L Alanine Aminotransferase (ALT/SGPT) 32 U/L Total Bilirubin 2.9 MG/DL Sodium Level 128 MEQ/L Potassium Level 3.9 MEQ/L Chloride Level 92 MEQ/L Carbon Dioxide Level 28.1 MEQ/L Anion Gap 8 MEQ/L Estimat Glomerular Filtration Rate 64 ML/MIN Lactic Acid Level 2.1 mmol/L Total Creatine Kinase 1048 U/L Creatine Kinase MB 2.9 NG/ML Creatine Kinase MB % 0.3 % Troponin I 0.09 NG/ML [facility] Medical Record Reviewed: Yes Supervised Visit with JACKIE: No Diagnosis Primary Impression: Pneumonia Additional Impressions: Hyponatremia Elevated troponin Admitting Information Admitting Physician Requests: Admit Michlele Rodriguez MD December 27, 2017 01:02
[2017-12-27] MEDS ORDERED: HEPARIN SODIUM - SQ 10,000 UNITS/ML VIAL SQ SCH (02:00)
[2017-12-27 02:55] LABS: BILIRUBIN, URINE NEG (NEG); BLOOD, URINE TRACE (NEG); GLUCOSE,URINE 500 mg/dL (NEG); KETONE, URINE TRACE mg/dL (NEG); NITRITE,URINE NEG (NEG); URINE COLOR YELLOW (YELLW/STRAW); URINE LEUKOCYTE ESTERASE NEG (NEG)
[2017-12-27 03:08] LABS: RBC, URINE 0-2 /hpf (0-3); SQUAMOUS EPITHELIAL CELL URINE 0-5 /hpf (0-5); WBC, URINE 0-2 /hpf (0-5)
[2017-12-27] MEDS ORDERED: cloNIDine HCL 0.1 MG TAB PO PRN (04:00)
[2017-12-27 05:05] LABS: TROPONIN I 0.11 NG/ML (0.02-0.05)
[2017-12-27] MEDS: INSULIN ASPART SUPPLEMENTAL SCALE SQ SCH ×4 (08:03→20:31)
[2017-12-27] MEDS: DOCUSATE SODIUM 50 MG/SENNA 8.6 MG TAB PO SCH ×2 (08:03→20:32)
[2017-12-27] MEDS: SODIUM CHLORIDE 0.9% FLUSH 10 ML FLUSH IV FLUSH SCH ×2 (08:06→20:33)
[2017-12-27] MEDS: SODIUM CHLORIDE 0.9% FLUSH 10 ML FLUSH IV FLUSH PRN (09:53)
[2017-12-27] MEDS: LACTATED RINGER'S 1000 ML INJ 1,000 ML IV SCH ×2 (09:53→20:36)
[2017-12-27 11:20] LABS: TROPONIN I 0.13 NG/ML (0.02-0.05)
[2017-12-27] MEDS ORDERED: NITROGLYCERIN 0.4 MG SL 25 TABS/BTL SL PRN (11:45)
[2017-12-27] MEDS ORDERED: HEPARIN-D5W 25,000 U/250 ML 250 ML IV SCH (11:45)
--- NOTE | 2017-12-27 12:04 | HHI.HP ---
[facility] Primary [facility]ician Unknown Admission Diagnosis Pneumonia/elevated troponin/hyponatremia Diagnoses: Chief Complaint: Weakness and confusion Travel History International Travel<30 Days: No Contact w/Intl Traveler <30 Da: No Traveled to Known Affected Are: No History of Present Illness This patient is an 82-year-old gentleman with a history of hypertension, coronary disease and diabetes who is increased shortness of breath and weakness over the last 2 days. Patient was seen in the emergency room yesterday after a fall and increased weakness. He was mildly hypoxemic but the patient recovered quickly and was discharged home on oral antibiotics. He has come back to the hospital for further symptoms. At this time patient appears to have acute pneumonia with imaging on my report and review shows likely early pneumonia. Patient also hyponatremic with elevated cardiac enzymes and rhabdomyolysis. Patient is hypoxemic at 89%. He has a history of coronary disease follows up with Dr. Mcconnell. Patient reports no kim chest pain and no dyspnea on exertion. He does take Plavix and Coreg for his heart as well as losartan. Patient had Review of Systems Constitutional: DENIES: Diaphoretic episodes, Fatigue, Fever, Weight gain, Weight loss, Chills, Dizziness, Change in appetite, Night Sweats Endocrine: DENIES: Heat/cold intolerance, Polydipsia, Polyuria, Polyphagia Eyes: DENIES: Blurred vision, Diplopia, Eye inflammation, Eye pain, Vision loss , Photosensitivity, Double Vision Ears, nose, mouth, throat: DENIES: Tinnitus, Hearing loss, Vertigo, Nasal discharge, Oral lesions, Throat pain, Hoarseness, Ear Pain, Running Nose, Epistaxis, Sinus Pain, Toothache, Odynophagia Respiratory: COMPLAINS OF: Cough, DENIES: Apneas, Snoring, Wheezing, Hemoptysis , Sputum production, Shortness of breath Cardiovascular: COMPLAINS OF: Dyspnea on Exertion, DENIES: Chest pain, Palpitations, Syncope, PND, Lower Extremity Edema, Orthopnea, Claudication Gastrointestinal: DENIES: Abdominal pain, Black stools, Bloody stools, Constipation, Diarrhea, Nausea, Vomiting, Difficulty Swallowing, Anorexia Genitourinary: DENIES: Sexual dysfunction, Urinary frequency, Urinary incontinence, Urgency, Hematuria, Dysuria, Nocturia, Penile Discharge, Testicular Pain, Testicular Swelling Musculoskeletal: DENIES: Joint pain, Muscle aches, Stiffness, Joint Swelling, Back pain, Neck pain Immunologic/allergic: DENIES: Eczema, Urticaria Neurologic: COMPLAINS OF: Abnormal gait, Poor Balance, DENIES: Headache, Localized weakness, Paresthesias, Seizures, Speech Problems, Tremor Psychiatric: DENIES: Anxiety, Confusion, Mood changes, Depression, Hallucinations, Agitation, Suicidal Ideation, Homicidal Ideation, Delusions Except as stated in HPI: all other systems reviewed are Neg Past Family Social History Past Medical History COPD Diabetes mellitus type 2 Coronary artery disease with a history of cardiac bypass Hyperlipidemia Past Surgical History Cholecystectomy Cardiac bypass TURP Reported Medications Reviewed in the EMR Allergies: Coded Allergies: No Known Allergies (Verified Adverse Reaction, Unknown, 12/26/17) Active Ordered Medications Reviewed in the EMR Family History Mother in childbirth, father from a bleeding issue Social History No tobacco or alcohol dependency, lives with his family Physical Exam Vital Signs Vital Signs Date Time Temp Pulse Resp B/P (MAP) Pulse Ox O2 Delivery O2 Flow Rate FiO2 12/27/17 08:53 100.2 73 15 138/64 (88) 92 12/27/17 08:00 94 Nasal Cannula 3.00 12/27/17 08:00 86 12/27/17 04:26 95 Nasal Cannula 3.00 12/27/17 04:00 97.3 19 158/62 (94) 97 12/27/17 02:50 77 12/27/17 00:17 99.5 91 18 138/68 (91) 94 Nasal Cannula 2.00 12/27/17 00:17 94 Nasal Cannula 2.00 12/26/17 22:05 100.1 12/26/17 21:45 93 Nasal Cannula 2.00 12/26/17 21:45 20 94 Nasal Cannula 2.00 12/26/17 21:40 97.7 88 18 179/72 (107) 94 Physical Exam GENERAL: This is a well-nourished, well-developed patient, in no apparent distress. SKIN: No rashes, ecchymoses or lesions. Cool and dry. HEAD: Atraumatic. Normocephalic. No temporal or scalp tenderness. EYES: Pupils equal round and reactive. Extraocular motions intact. No scleral icterus. No injection or drainage. ENT: Nose without bleeding, purulent drainage or septal hematoma. Throat without erythema, tonsillar hypertrophy or exudate. Uvula midline. Airway patent. NECK: Trachea midline. No JVD or lymphadenopathy. Supple, nontender, no meningeal signs. CARDIOVASCULAR: Regular rate and rhythm without murmurs, gallops, or rubs. RESPIRATORY: Clear to auscultation. Breath sounds equal bilaterally. No wheezes , rales, or rhonchi. GASTROINTESTINAL: Abdomen soft, non-tender, nondistended. No hepato-splenomegaly , or palpable masses. No guarding. MUSCULOSKELETAL: Extremities without clubbing, cyanosis, or edema. No joint tenderness, effusion, or edema noted. No calf tenderness. Negative Homans sign bilaterally. NEUROLOGICAL: Awake and alert. Cranial nerves II through XII intact. Motor and sensory grossly within normal limits. Five out of 5 muscle strength in all muscle groups. Normal speech. Laboratory Laboratory Tests Test 12/26/17 22:35 12/27/17 01:10 12/27/17 02:44 12/27/17 04:30 White Blood Count 8.1 Red Blood Count 4.51 Hemoglobin 14.0 Hematocrit 42.3 Mean Corpuscular Volume 93.8 Mean Corpuscular Hemoglobin 31.1 Mean Corpuscular Hemoglobin Concent 33.1 Red Cell Distribution Width 11.6 Platelet Count 184 Mean Platelet Volume 7.4 Neutrophils (%) (Auto) 80.3 Lymphocytes (%) (Auto) 6.5 Monocytes (%) (Auto) 13.0 Eosinophils (%) (Auto) 0.0 Basophils (%) (Auto) 0.2 Neutrophils # (Auto) 6.5 Lymphocytes # (Auto) 0.5 Monocytes # (Auto) 1.1 Eosinophils # (Auto) 0.0 Basophils # (Auto) 0.0 CBC Comment DIFF FINAL Differential Comment Blood Urea Nitrogen 11 Creatinine 1.10 Random Glucose 285 Total Protein 8.0 Albumin 3.7 Calcium Level 9.0 Alkaline Phosphatase 50 Aspartate Amino Transf (AST/SGOT) 41 Alanine Aminotransferase (ALT/SGPT) 32 Total Bilirubin 2.9 Sodium Level 128 Potassium Level 3.9 Chloride Level 92 Carbon Dioxide Level 28.1 Anion Gap 8 Estimat Glomerular Filtration Rate 64 Lactic Acid Level 2.1 1.6 Total Creatine Kinase 1048 1170 Creatine Kinase MB 2.9 3.8 Creatine Kinase MB % 0.3 0.3 Troponin I 0.09 0.11 Urine Color YELLOW Urine Turbidity CLEAR Urine pH 5.0 Urine Specific [place] 1.010 Urine Protein NEG Urine Glucose (UA) 500 Urine Ketones TRACE Urine Occult Blood TRACE Urine Nitrite NEG Urine Bilirubin NEG Urine Urobilinogen 0.2 Urine Leukocyte Esterase NEG Urine RBC 0-2 Urine WBC 0-2 Urine Squamous Epithelial Cells 0-5 Urine Bacteria NONE Microscopic Urinalysis Comment CULT NOT INDICATED Test 12/27/17 10:50 Total Creatine Kinase 1327 Troponin I 0.13 Date/Time Source Procedure Growth Status 12/26/17 22:40 Blood Peripheral Aerobic Blood Culture - Preliminary NO GROWTH IN 1 DAY Resulted 12/26/17 22:40 Blood Peripheral Anaerobic Blood Culture - Preliminary NO GROWTH IN 1 DAY Resulted 12/26/17 22:35 Nasal Washing Influenza Types A,B Antigen (JONA) - Final NEGATIVE FOR FLU A AND B ANTIGEN.... Complete Result Diagram: 12/26/17223412/26/172234 Assessment and Plan Problem List: (1) Elevated troponin ICD Code: R74.8 - Abnormal levels of other serum enzymes Status: Acute Plan: Patient with acute coronary syndrome, it is unclear if this is a true cardiac event versus related to the acute pneumonia and rhabdomyolysis. We will continue to follow troponins, heparin,continue with beta-sydni, Plavix, aspirin Cardiology consult consult pending Continue telemetry We will follow-up echocardiogram may need debo scan when stable (2) Pneumonia ICD Code: J18.9 - Pneumonia, unspecified organism Status: Acute Plan: Continue with IV Rocephin and azithromycin for likely community-acquired pneumonia (3) Hyponatremia ICD Code: E87.1 - Hypo-osmolality and hyponatremia Status: Acute Plan: Likely secondary to acute pulmonary process Follow-up with IV hydration (4) Rhabdomyolysis ICD Code: M62.82 - Rhabdomyolysis Plan: Continue with IV fluids Follow trend hold statin (patient listed as having pravastatin and atorvastatin as his home medications. We will discontinue pravastatin and if needed resume atorvastatin once rhabdo improved) (5) DM2 (diabetes mellitus, type 2) ICD Code: E11.9 - Type 2 diabetes mellitus without complications Plan: Continue with diabetic diet, hold metformin Continue with Januvia and Amaryl for now Follow-up sliding scale as needed Physician Certification 2 Midnight Certification Type: Admission for Inpatient Services Order for Inpatient Services The services are ordered in accordance with Medicare regulations or non- Medicare payer requirements, as applicable. In the case of services not specified as inpatient-only, they are appropriately provided as inpatient services in accordance with the 2-midnight benchmark. Estimated LOS (days): 4 4 days is the estimated time the patient will need to remain in the hospital, assuming treatment plan goals are met and no additional complications. Post-Hospital Plan: Not yet determined Amy Gonzalse MD December 27, 2017 12:04
[2017-12-27] MEDS: ACETAMINOPHEN 325 MG TAB PO PRN (12:33)
[2017-12-27] MEDS: CARVEDILOL 6.25 MG TAB PO SCH ×2 (12:34→20:32)
[2017-12-27] MEDS: CLOPIDOGREL 75 MG TAB PO SCH (12:34)
[2017-12-27] MEDS: ASPIRIN 325 MG TAB PO SCH (12:34)
[2017-12-27 12:46] LABS: ALBUMIN 3.2 GM/DL (3.4-5.0); BLOOD UREA NITROGEN 9 MG/DL (7-18); GLUCOSE,RANDOM 238 MG/DL (74-106)
[2017-12-27 12:48] LABS: CHLORIDE 94 MEQ/L (98-107); SODIUM (NA) 130 MEQ/L (136-145)
[2017-12-27 12:49] LABS: AST (GOT) 55 U/L (15-37); GLOMERULAR FILTRATION RATE 64 ML/MIN (>89)
[2017-12-27 12:50] LABS: BICARBONATE 27.2 MEQ/L (21.0-32.0); CALCIUM 8.3 MG/DL (8.5-10.1)
[2017-12-27 12:51] LABS: TOTAL BILIRUBIN ADULT 1.8 MG/DL (0.2-1.0); TOTAL PROTEIN 6.9 GM/DL (6.4-8.2)
[2017-12-27 12:54] LABS: ALT (GPT) 31 U/L (12-78)
[2017-12-27 12:57] LABS: ALKALINE PHOSPHATASE 42 U/L (45-117)
[2017-12-27 13:01] LABS: HEMATOCRIT 39.5 % (39.0-51.0); HEMOGLOBIN 13.4 GM/DL (13.0-17.0); MEAN CELL VOLUME 93.7 FL (80.0-100.0); MEAN CORPUSCULAR HEMOGLOBIN 31.8 PG (27.0-34.0); MEAN CORPUSCULAR HGB CONC 33.9 % (32.0-36.0); MEAN PLATELET VOLUME 7.5 FL (7.0-11.0); PLATELET COUNT 183 TH/MM3 (150-450); RED BLOOD COUNT 4.22 MIL/MM3 (4.50-5.90); RED CELL DISTRIBUTION WIDTH 12.2 % (11.6-17.2); WHITE BLOOD COUNT 6.8 TH/MM3 (4.0-11.0)
[2017-12-27 13:25] LABS: INTERNATIONAL NORMALIZED RATIO 1.2 RATIO; PROTHROMBIN TIME - PATIENT 12.3 SEC (9.8-11.6)
--- NOTE | 2017-12-27 17:22 | MB ---
cc: Benson Bermudez MD DATE: 12/27/2017 REASON FOR CONSULTATION: Elevated troponin. HISTORY OF PRESENT ILLNESS: The patient is a pleasant 82-year-old gentleman known to myself who has a history of coronary artery disease status post bypass surgery, as well as tobacco abuse who presented with a fall. He apparently fell down and was on the floor for 15-20 minutes, but when seen in the Emergency Department and was found to have multiple lab abnormalities and findings concerning for pneumonia, also abnormal was his total CPK and slight elevation in his troponins. He denies any cardiac symptoms such as chest pain. He has no real shortness of breath, but he has a severe cough. No lightheadedness, dizziness or syncope currently. PAST MEDICAL HISTORY: Abnormal EKG, coronary artery disease, status post bypass x3 in 1995, CKD, CVA, diabetes, hypertension, hyperlipidemia, tobacco abuse, TIA. CURRENT MEDICATIONS: 1. Januvia. 2. Amaryl. 3. Ceftriaxone. 4. Hydroxyzine. 5. Aspirin. 6. Carvedilol 6.25 mg b.i.d. 7. Plavix. 8. Heparin drip. ALLERGIES: NO KNOWN DRUG ALLERGIES. PHYSICAL EXAMINATION: VITAL SIGNS: Temperature 98, down from 101.9, pulse 60, respiratory rate 16, BP 120/60, sating 94 on 3 liters. LABORATORY DATA: Sodium 130, potassium 4.0, chloride 94, bicarbonate 27, BUN 9, creatinine 1.1, glucose 238. Troponin 0.09, 0.11, 0.13. Total CPKs are elevated to 1327 with normal CK-MBs. White count 6.8, hematocrit 39.5, platelets 183. EKG shows sinus rhythm with inferior infarct and anterior T-wave inversions. CTA of the chest showed probable pneumonia, though they could not exclude neoplasm. Nuclear stress test performed in my office in October of this year was notable for moderate lateral wall infarct with only minimal colby-infarct ischemia. RECOMMENDATIONS: Given no current cardiac symptoms and a recent stress test in my office, I do not think he requires any further cardiac workup at this time. Please call with any further questions. Thank you again for the opportunity to participate in this patient's care. MD CASANDRA Sotomayor/ISH , 05:00 PM , 05:21 PM
--- NOTE | 2017-12-27 17:30 | ECHRPT ---
Indication: SHORTNESS OF BREATH CONCLUSIONS Normal left ventricular size. EF @ 40-45% Wall thickness is normal. There is diffuse global hypokinesis with distinct regional wall motion abnormalities. Trace mitral valve regurgitation. There is mild tricuspid valve regurgitation. The estimated pulmonary arterial pressure is 47.9 mmHg. mitral annular calcification BP: 130 / 70 HR: 85 Rhythm: MEASUREMENTS (Male / Female) Normal Values Technical Quality: 2D ECHO LV Diastolic Diameter PLAX 6.2 cm 4.2 - 5.9 / 3.9 - 5.3 cm LV Systolic Diameter PLAX 5.7 cm IVS Diastolic Thickness 1.2 cm 0.6 - 1.0 / 0.6 - 0.9 cm LVPW Diastolic Thickness 0.9 cm 0.6 - 1.0 / 0.6 - 0.9 cm LV Relative Wall Thickness 0.3 RV Internal Dim ED PLAX 3.5 cm LVOT Diameter 1.9 cm Aortic Root Diameter 3.3 cm LA Systolic Diameter LX 3.0 cm 3.0 - 4.0 / 2.7 - 3.8 cm M-MODE AV Cusp Separation MM 2.0 cm DOPPLER AV Peak Velocity 125.0 cm/s AV Peak Gradient 6.3 mmHg AV Mean Gradient 3.0 mmHg AV Velocity Time Integral 21.8 cm LVOT Peak Velocity 76.7 cm/s LVOT Peak Gradient 2.4 mmHg LVOT Velocity Time Integral 14.8 cm AV Area Cont Eq vti 1.9 cm AV Area Cont Eq pk 1.7 cm Mitral E Point Velocity 73.1 cm/s Mitral A Point Velocity 51.8 cm/s Mitral E to A Ratio 1.4 LV E' Lateral Velocity 7.0 cm/s Mitral E to LV E' Lateral Ratio 10.4 LV E' Septal Velocity 3.3 cm/s Mitral E to LV E' Septal Ratio 22.1 TR Peak Velocity 308.0 cm/s TR Peak Gradient 37.9 mmHg Right Atrial Pressure 10.0 mmHg Pulmonary Artery Systolic Pressu 47.9 mmHg Right Ventricular Systolic Press 47.9 mmHg PV Peak Velocity 79.7 cm/s PV Peak Gradient 2.5 mmHg FINDINGS LEFT VENTRICLE Normal left ventricular size. Wall thickness is normal. There is diffuse global hypokinesis with distinct regional wall motion abnormalities. RIGHT VENTRICLE Normal right ventricular size and systolic function. LEFT ATRIUM The left atrial size is normal. RIGHT ATRIUM The right atrial size is normal. ATRIAL SEPTUM No atrial level shunt is demonstrated by color flow Doppler interrogation. AORTA The aortic root and proximal ascending aorta are not well visualized. MITRAL VALVE Trace mitral valve regurgitation. AORTIC VALVE Trileaflet aortic valve. No aortic valve stenosis or regurgitation. TRICUSPID VALVE There is mild tricuspid valve regurgitation. The estimated pulmonary arterial pressure is 47.9 mmHg. PULMONARY VALVE No pulmonary valve regurgitation or stenosis. VESSELS The inferior vena cava is normal in size. PERICARDIUM A prominent epicardial fat pad is present. No pericardial effusion. Saji Reyse MD, FACC, [facility] [place] (Electronically Signed) Final Date:27 Dec 2017 17:29
[2017-12-27 18:48] LABS: TROPONIN I 0.12 NG/ML (0.02-0.05)
[2017-12-27] MEDS: AZITHROMYCIN INJ 500 MG in SODIUM CHLOR 0.9% 250 ML INJ 250 ML IV SCH (20:25)
[2017-12-27] MEDS: hydrOXYzine HCL 25 MG TAB PO SCH (20:32)
[2017-12-27] MEDS: cefTRIAXone INJ 1,000 MG in SODIUM CHLORIDE 0.9% INJ 100 ML IV SCH (20:34)
--- NOTE | 2017-12-27 21:20 | EKG ---
Date Performed: 12/26/2017 Time Performed: 23:16:42 PTAGE: 82 years EKG: Sinus rhythm INFERIOR MYOCARDIAL INFARCTION MODERATE T-WAVE ABNORMALITY, CONSIDER ANTEROLATERAL ISCHEMIA ABNORMAL ECG PREVIOUS TRACING : 11/26/2017 19.26 DOCTOR: Saji Reyes Interpretating Date/Time 12/27/2017 21:18:17
--- NOTE | 2017-12-27 21:22 | EKG ---
Date Performed: 12/27/2017 Time Performed: 10:45:24 PTAGE: 82 years EKG: Sinus rhythm WITH OCCASIONAL SUPRAVENTRICULAR PREMATURE COMPLEXES CONSIDER POSSIBLE INFERIOR MYOCARDIAL INFARCTIO N-age Undetermined MODERATE T-WAVE ABNORMALITY, CONSIDER ANTEROLATERAL ISCHEMIA ABNORMAL ECG PREVIOUS TRACING : 12/27/2017 04.20 DOCTOR: Saji Reyes Interpretating Date/Time 12/27/2017 21:21:10
--- NOTE | 2017-12-27 21:22 | EKG ---
Date Performed: 12/27/2017 Time Performed: 04:20:23 PTAGE: 82 years EKG: Undetermined rhythm due to baseline artifact. Consider atril fibrillation. Nonspecific ST-T wave changes. RIGHT BUNDLE BRANCH BLOCK ABNORMAL ECG PREVIOUS TRACING : 12/26/2017 23.16.42 DOCTOR: Saji Reyes Interpretating Date/Time 12/27/2017 21:20:38
[2017-12-28] VITALS (8 sets, daily range): BP systolic 118–156; BP diastolic 62–78; PULSE 64–84; RESP 18–22; TEMP 97–101; O2SAT 93–98
[2017-12-28 01:40] LABS: TROPONIN I 0.16 NG/ML (0.02-0.05)
[2017-12-28] MEDS: guaiFENesin/DEXTROMETHORPHAN 200 MG/20 MG/10 ML CUP PO PRN (04:34)
[2017-12-28] MEDS: GLIMEPIRIDE 4 MG TAB PO SCH (07:42)
[2017-12-28] MEDS: INSULIN ASPART SUPPLEMENTAL SCALE SQ SCH ×4 (08:01→20:48)
[2017-12-28] MEDS: DOCUSATE SODIUM 50 MG/SENNA 8.6 MG TAB PO SCH ×2 (08:10→20:46)
[2017-12-28] MEDS: SODIUM CHLORIDE 0.9% FLUSH 10 ML FLUSH IV FLUSH SCH ×2 (08:10→20:46)
[2017-12-28 09:12] LABS: AUTOMATED NEUTROPHIL # 5.4 TH/MM3 (1.8-7.7); BASOPHIL % 0.2 % (0.0-2.0); EOSINOPHIL % 0.2 % (0.0-4.0); HEMATOCRIT 40.4 % (39.0-51.0); HEMOGLOBIN 13.8 GM/DL (13.0-17.0); LYMPH % 15.3 % (9.0-44.0); LYMPHOCYTE # 1.2 TH/MM3 (1.0-4.8); MEAN CELL VOLUME 93.5 FL (80.0-100.0); MEAN CORPUSCULAR HEMOGLOBIN 31.8 PG (27.0-34.0); MEAN PLATELET VOLUME 8.2 FL (7.0-11.0); MONO % 15.4 % (0.0-8.0); MONOCYTE # 1.2 TH/MM3 (0-0.9); NEUT % 68.9 % (16.0-70.0); PLATELET COUNT 168 TH/MM3 (150-450); RED BLOOD COUNT 4.32 MIL/MM3 (4.50-5.90); RED CELL DISTRIBUTION WIDTH 11.9 % (11.6-17.2); WHITE BLOOD COUNT 7.9 TH/MM3 (4.0-11.0)
[2017-12-28] MEDS: ASPIRIN 325 MG TAB PO SCH (09:42)
[2017-12-28] MEDS: CARVEDILOL 6.25 MG TAB PO SCH ×2 (09:42→20:46)
[2017-12-28] MEDS: CLOPIDOGREL 75 MG TAB PO SCH (09:42)
[2017-12-28] MEDS: ACETAMINOPHEN 325 MG TAB PO PRN ×2 (10:30→20:44)
[2017-12-28 11:53] LABS: CALCIUM 8.1 MG/DL (8.5-10.1)
[2017-12-28 12:14] LABS: CREATININE 0.86 MG/DL (0.60-1.30)
[2017-12-28] MEDS ORDERED: FUROSEMIDE 20 MG/2 ML VIAL IV PUSH ONE (13:00)
[2017-12-28] MEDS ORDERED: POTASSIUM CHLORIDE 10 MEQ CONTROLLED RELEASE TAB PO ONE (13:00)
--- NOTE | 2017-12-28 13:07 | HHI.PR ---
Subjective Remarks Patient seen and evaluated today in follow-up for pneumonia, elevated cardiac enzymes. Cardiology evaluation appreciated. Patient still febrile at 101 Objective Vitals Vital Signs Date Time Temp Pulse Resp B/P (MAP) Pulse Ox O2 Delivery O2 Flow Rate FiO2 12/28/17 12:45 98.2 64 18 118/62 (80) 94 12/28/17 10:29 101.0 12/28/17 09:42 100.2 76 19 132/64 (86) 93 12/28/17 04:00 97.0 80 22 136/78 (97) 96 12/28/17 00:43 97.1 79 22 133/76 (95) 98 12/27/17 20:06 99.4 78 22 150/73 (98) 96 12/27/17 20:00 83 12/27/17 19:30 92 21 12/27/17 15:00 98.0 68 16 120/60 (80) 94 12/27/17 15:00 70 12/27/17 13:10 101.9 85 16 130/70 (90) 93 I/O 12/27/17 12/27/17 12/27/17 12/28/17 12/28/17 12/28/17 07:00 15:00 23:00 07:00 15:00 23:00 Intake Total 1350 ml 1730 ml 1117 ml 431 ml Output Total 250 ml 625 ml Balance 1350 ml -250 ml 1105 ml 1117 ml 431 ml Intake Oral 1380 ml IV Total 1350 ml 350 ml 1117 ml 431 ml Output Urine Total 250 ml 625 ml # Voids 4 6 # Bowel Movements 0 7 Result Diagram: 12/28/17 0820 12/28/17 [address] Angiography 12/27/17 0016 Signed Impressions: Service Date/Time: Tuesday, December 26, 2017 23:59 - CONCLUSION: 1. Negative for pulmonary embolus. 2. Focal consolidation left upper lobe associated with mild left hilar and subcarinal adenopathy. Differential diagnosis is focal pneumonic infiltrate with reactive adenopathy. Cannot exclude neoplasm. Recommend close followup CT in the next several weeks. If findings do not resolve then consider PET CT for evaluation of neoplasm. Familia Benoit MD Chest X-Ray 12/26/17 8902 Signed Impressions: Service Date/Time: Tuesday, December 26, 2017 22:59 - CONCLUSION: 1. Peribronchial thickening without focal infiltrate. Basal atelectasis or mild fibrotic changes. Familia Benoit MD Objective Remarks GENERAL: This is a well-nourished, well-developed patient, sleepy at this time but has been up out of bed earlier CARDIOVASCULAR: Regular rate and rhythm without murmurs, gallops, or rubs. RESPIRATORY: decreased breath sounds bilaterally with some congestion and bibasilar crackles GASTROINTESTINAL: Abdomen soft, non-tender, nondistended. Normal active bowel sounds MUSCULOSKELETAL: Extremities without clubbing, cyanosis, or edema. NEURO: Alert & Oriented x4 to person, place, time, situation. Moves all ext x4 A/P Problem List: (1) Elevated troponin ICD Code: R74.8 - Abnormal levels of other serum enzymes Status: Acute Plan: Patient with acute coronary syndrome, it is unclear if this is a true cardiac event versus related to the acute pneumonia and rhabdomyolysis. We will continue to follow troponins, heparin,continue with beta-sydni, Plavix, aspirin Cardiology consult consult appreciated Continue telemetry Echocardiogram shows EF of 40-45% patient presents with acute exacerbation of systolic heart failure Add Lasix Patient recently had outpatient evaluation (2) Pneumonia ICD Code: J18.9 - Pneumonia, unspecified organism Status: Acute Plan: Continue with IV Rocephin and azithromycin for likely community-acquired pneumonia Repeat chest x-ray today due to worsening congestion (3) Hyponatremia ICD Code: E87.1 - Hypo-osmolality and hyponatremia Status: Acute Plan: Patient appears to be volume overloaded as well as acute primary process , probably vascular congestion We will add Lasix continue with daily weights and ins and outs Overall improved (4) Rhabdomyolysis ICD Code: M62.82 - Rhabdomyolysis Plan: Continue with IV fluids Follow trend hold statin (patient listed as having pravastatin and atorvastatin as his home medications. We will discontinue pravastatin and if needed resume atorvastatin once rhabdo improved) (5) DM2 (diabetes mellitus, type 2) ICD Code: E11.9 - Type 2 diabetes mellitus without complications Plan: Continue with diabetic diet, hold metformin Continue with Januvia and Amaryl for now Follow-up sliding scale as needed Discharge Planning Likely to inpatient rehab Amy Gonzales MD December 28, 2017 13:06
--- NOTE | 2017-12-28 14:26 | RADRPT ---
EXAM DATE/TIME: 12/28/2017 13:51 [place] COMPARISON: CHEST PA & LAT, December 25, 2017, 18:50. CHEST SINGLE AP, July 15, 2015, 22:07. INDICATIONS : Cough and congestion. MEDICAL HISTORY : Myocardial infarction. Diabetes mellitus type 2. Cardiovascular disease. SURGICAL HISTORY : Cholecystectomy. CABG. ENCOUNTER: Subsequent ACUITY: 1 week PAIN SCORE: 2/10 LOCATION: Bilateral chest FINDINGS: No new focal pleural or parenchymal opacities. Mild diffuse persistent interstitial prominence. Cardi omediastinal contours are stable. Median sternotomy wires in place with disruption of the cephalad wi res. Remainder of the exam is unchanged. CONCLUSION: 1. No acute abnormality or significant interval change. Shay Qureshi MD on December 28, 2017 at 14:22 Board Certified Radiologist. This report was verified electronically.
[2017-12-28] MEDS: hydrOXYzine HCL 25 MG TAB PO SCH (20:46)
[2017-12-28] MEDS: AZITHROMYCIN INJ 500 MG in SODIUM CHLOR 0.9% 250 ML INJ 250 ML IV SCH (20:46)
[2017-12-28] MEDS: cefTRIAXone INJ 1,000 MG in SODIUM CHLORIDE 0.9% INJ 100 ML IV SCH (21:44)
[2017-12-28] MEDS: SODIUM CHLORIDE 0.9% FLUSH 10 ML FLUSH IV FLUSH PRN (21:45)
[2017-12-29] VITALS: BP 142/63; PULSE 61; RESP 22; TEMP 97.4; O2SAT 95
[2017-12-29 04:00] VITALS: BP 136/78; PULSE 88; RESP 22; TEMP 98.4; O2SAT 96
[2017-12-29 06:11] LABS: CHLORIDE 98 MEQ/L (98-107); SODIUM (NA) 133 MEQ/L (136-145)
[2017-12-29 06:15] LABS: ALBUMIN 3.1 GM/DL (3.4-5.0); AUTOMATED NEUTROPHIL # 5.4 TH/MM3 (1.8-7.7); BASOPHIL % 0.4 % (0.0-2.0); BICARBONATE 26.7 MEQ/L (21.0-32.0); BLOOD UREA NITROGEN 12 MG/DL (7-18); CALCIUM 8.2 MG/DL (8.5-10.1); EOSINOPHIL % 0.2 % (0.0-4.0); GLUCOSE,RANDOM 117 MG/DL (74-106); HEMOGLOBIN 13.5 GM/DL (13.0-17.0); LYMPH % 13.7 % (9.0-44.0); LYMPHOCYTE # 1.1 TH/MM3 (1.0-4.8); MEAN CELL VOLUME 93.5 FL (80.0-100.0); MEAN CORPUSCULAR HEMOGLOBIN 30.8 PG (27.0-34.0); MEAN CORPUSCULAR HGB CONC 32.9 % (32.0-36.0); MEAN PLATELET VOLUME 7.6 FL (7.0-11.0); MONO % 15.3 % (0.0-8.0); MONOCYTE # 1.2 TH/MM3 (0-0.9); NEUT % 70.4 % (16.0-70.0); PLATELET COUNT 161 TH/MM3 (150-450); RED BLOOD COUNT 4.39 MIL/MM3 (4.50-5.90); RED CELL DISTRIBUTION WIDTH 11.8 % (11.6-17.2); WHITE BLOOD COUNT 7.7 TH/MM3 (4.0-11.0)
[2017-12-29 06:18] LABS: ALT (GPT) 45 U/L (12-78); AST (GOT) 80 U/L (15-37); CREATININE 0.78 MG/DL (0.60-1.30); GLOMERULAR FILTRATION RATE 96 ML/MIN (>89)
[2017-12-29 06:20] LABS: TOTAL BILIRUBIN ADULT 1.2 MG/DL (0.2-1.0); TOTAL PROTEIN 6.9 GM/DL (6.4-8.2)
[2017-12-29 06:21] LABS: ALKALINE PHOSPHATASE 40 U/L (45-117)
[2017-12-29] MEDS: guaiFENesin/DEXTROMETHORPHAN 200 MG/20 MG/10 ML CUP PO PRN ×2 (07:47→13:45)
[2017-12-29] MEDS: GLIMEPIRIDE 4 MG TAB PO SCH (07:48)
[2017-12-29] MEDS: DOCUSATE SODIUM 50 MG/SENNA 8.6 MG TAB PO SCH ×2 (07:48→21:23)
[2017-12-29] MEDS: ACETAMINOPHEN 325 MG TAB PO PRN ×2 (07:48→15:30)
[2017-12-29] MEDS: CLOPIDOGREL 75 MG TAB PO SCH (07:48)
[2017-12-29] MEDS: CARVEDILOL 6.25 MG TAB PO SCH ×2 (07:48→21:23)
[2017-12-29] MEDS: ASPIRIN 325 MG TAB PO SCH (07:48)
[2017-12-29] MEDS: SODIUM CHLORIDE 0.9% FLUSH 10 ML FLUSH IV FLUSH SCH ×2 (07:50→21:23)
[2017-12-29] MEDS: INSULIN ASPART SUPPLEMENTAL SCALE SQ SCH ×4 (07:50→21:25)
[2017-12-29 08:00] VITALS: BP 175/76; PULSE 81; PULSE 84; RESP 20; TEMP 100.8; O2SAT 95
--- NOTE | 2017-12-29 11:26 | HHI.PR ---
Subjective Remarks Patient seen and evaluated today in follow-up for left upper lobe pneumonia. Overnight T-max 101. Clinically doing much better however. More alert and oriented. No events on telemetry. Care plan discussed with occupational, and physical rehab services Objective Vitals Vital Signs Date Time Temp Pulse Resp B/P (MAP) Pulse Ox O2 Delivery O2 Flow Rate FiO2 12/29/17 08:00 84 12/29/17 08:00 100.8 81 20 175/76 (109) 95 12/29/17 04:00 98.4 88 22 136/78 (97) 96 12/29/17 00:00 97.4 61 22 142/63 (89) 95 12/28/17 20:00 101.0 80 22 156/71 (99) 96 12/28/17 20:00 84 12/28/17 16:47 98.4 82 19 132/76 (94) 96 12/28/17 12:45 98.2 64 18 118/62 (80) 94 I/O 12/28/17 12/28/17 12/28/17 12/29/17 12/29/17 12/29/17 07:00 15:00 23:00 07:00 15:00 23:00 Intake Total 1117 ml 431 ml 1070 ml 120 ml Output Total 1000 ml 200 ml Balance 1117 ml 431 ml 70 ml -80 ml Intake Oral 720 ml 120 ml IV Total 1117 ml 431 ml 350 ml Output Urine Total 1000 ml 200 ml # Voids 6 4 # Bowel Movements 7 1 3 Result Diagram: 12/29/17 0545 12/29/17 0545 Imaging Last Impressions Chest X-Ray 12/28/17 0000 Signed Impressions: Service Date/Time: Thursday, December 28, 2017 13:51 - CONCLUSION: 1. No acute abnormality or significant interval change. Shay Qureshi MD CT Angiography 12/27/17 0016 Signed Impressions: Service Date/Time: Tuesday, December 26, 2017 23:59 - CONCLUSION: 1. Negative for pulmonary embolus. 2. Focal consolidation left upper lobe associated with mild left hilar and subcarinal adenopathy. Differential diagnosis is focal pneumonic infiltrate with reactive adenopathy. Cannot exclude neoplasm. Recommend close followup CT in the next several weeks. If findings do not resolve then consider PET CT for evaluation of neoplasm. Familia Benoit MD Objective Remarks GENERAL: This is a well-nourished, well-developed patient, alert without complaints CARDIOVASCULAR: Regular rate and rhythm without murmurs, gallops, or rubs. RESPIRATORY: Improved respiratory sounds without wheezes or crackles GASTROINTESTINAL: Abdomen soft, non-tender, nondistended. Normal active bowel sounds MUSCULOSKELETAL: Extremities without clubbing, cyanosis, or edema. NEURO: Alert & Oriented x4 to person, place, time, situation. Moves all ext x4 A/P Problem List: (1) Elevated troponin ICD Code: R74.8 - Abnormal levels of other serum enzymes Status: Acute Plan: Patient with acute coronary syndrome, it is unclear if this is a true cardiac event versus related to the acute pneumonia and rhabdomyolysis. We will continue to follow troponins, heparin,continue with beta-sydni, Plavix, aspirin Cardiology consult consult appreciated DC telemetry Echocardiogram shows EF of 40-45% patient presents with acute exacerbation of systolic heart failure Over 1.4 L out with Lasix Patient recently had outpatient evaluation (2) Pneumonia ICD Code: J18.9 - Pneumonia, unspecified organism Status: Acute Plan: Continue with IV Rocephin and azithromycin for likely community-acquired pneumonia Chest x-ray unremarkable for acute changes, shows pneumonia (3) Hyponatremia ICD Code: E87.1 - Hypo-osmolality and hyponatremia Status: Acute Plan: Patient appears to be volume overloaded as well as acute primary process , probably vascular congestion We will add Lasix continue with daily weights and ins and outs Overall improved (4) Rhabdomyolysis ICD Code: M62.82 - Rhabdomyolysis Plan: Improved Continue to hold pravastatin (5) DM2 (diabetes mellitus, type 2) ICD Code: E11.9 - Type 2 diabetes mellitus without complications Plan: Continue with diabetic diet, hold metformin Continue with Januvia and Amaryl for now Follow-up sliding scale as needed Discharge Planning Likely to inpatient rehab in Amy Morataya MD December 29, 2017 11:26
[2017-12-29 12:00] VITALS: BP 111/67; PULSE 62; RESP 19; TEMP 97.3; O2SAT 98
[2017-12-29] MEDS: FUROSEMIDE 20 MG TAB PO SCH (13:40)
[2017-12-29 16:00] VITALS: BP 147/65; PULSE 71; RESP 19; TEMP 100.1; O2SAT 95
[2017-12-29 20:00] VITALS: BP 139/71; PULSE 97; RESP 22; TEMP 96.7; O2SAT 91
[2017-12-29] MEDS: AZITHROMYCIN INJ 500 MG in SODIUM CHLOR 0.9% 250 ML INJ 250 ML IV SCH (21:21)
[2017-12-29] MEDS: cefTRIAXone INJ 1,000 MG in SODIUM CHLORIDE 0.9% INJ 100 ML IV SCH (21:22)
[2017-12-29] MEDS: hydrOXYzine HCL 25 MG TAB PO SCH (21:23)
[2017-12-30] VITALS (7 sets, daily range): BP systolic 109–145; BP diastolic 57–75; PULSE 63–106; RESP 19–22; TEMP 97.7–102.4; O2SAT 86–94
[2017-12-30] MEDS: guaiFENesin/DEXTROMETHORPHAN 200 MG/20 MG/10 ML CUP PO PRN ×3 (00:39→18:45)
[2017-12-30] MEDS: ACETAMINOPHEN 325 MG TAB PO PRN ×2 (00:39→10:46)
[2017-12-30] MEDS: INSULIN ASPART SUPPLEMENTAL SCALE SQ SCH ×4 (08:00→20:31)
[2017-12-30] MEDS: CLOPIDOGREL 75 MG TAB PO SCH (10:46)
[2017-12-30] MEDS: ASPIRIN 325 MG TAB PO SCH (10:46)
[2017-12-30] MEDS: SODIUM CHLORIDE 0.9% FLUSH 10 ML FLUSH IV FLUSH SCH ×2 (10:46→20:24)
[2017-12-30] MEDS: DOXYCYCLINE HYCLATE 100 MG TAB PO SCH ×2 (10:46→20:24)
[2017-12-30] MEDS: CARVEDILOL 6.25 MG TAB PO SCH ×2 (10:47→20:25)
[2017-12-30] MEDS: DOCUSATE SODIUM 50 MG/SENNA 8.6 MG TAB PO SCH ×2 (10:47→20:25)
[2017-12-30] MEDS: GLIMEPIRIDE 4 MG TAB PO SCH (10:47)
[2017-12-30] MEDS: FUROSEMIDE 20 MG TAB PO SCH (10:47)
--- NOTE | 2017-12-30 10:48 | HHI.PR ---
Subjective Remarks Patient seen and evaluated today in follow-up for continued fever. No new events overnight but still with fever 102.4. Patient feels better but is complaining of some dysuria today. Care plan discussed with Manuelito BRANDON Objective Vitals Vital Signs Date Time Temp Pulse Resp B/P (MAP) Pulse Ox O2 Delivery O2 Flow Rate FiO2 12/30/17 08:21 100.0 77 20 109/65 (80) 94 12/30/17 02:00 99.5 12/30/17 00:00 102.4 106 22 145/74 (97) 90 12/29/17 20:00 96.7 97 22 139/71 (93) 91 12/29/17 16:00 100.1 71 19 147/65 (92) 95 12/29/17 12:00 97.3 62 19 111/67 (82) 98 I/O 12/29/17 12/29/17 12/29/17 12/30/17 12/30/17 12/30/17 07:00 15:00 23:00 07:00 15:00 23:00 Intake Total 120 ml 1220 ml Output Total 200 ml 600 ml Balance -80 ml 620 ml Intake Oral 120 ml 870 ml IV Total 350 ml Output Urine Total 200 ml 600 ml # Voids 4 # Bowel Movements 3 1 Result Diagram: 12/29/17 0545 12/29/17 0545 Imaging Last Impressions Chest X-Ray 12/28/17 0000 Signed Impressions: Service Date/Time: Thursday, December 28, 2017 13:51 - CONCLUSION: 1. No acute abnormality or significant interval change. Shay Qureshi MD CT Angiography 12/27/17 0016 Signed Impressions: Service Date/Time: Tuesday, December 26, 2017 23:59 - CONCLUSION: 1. Negative for pulmonary embolus. 2. Focal consolidation left upper lobe associated with mild left hilar and subcarinal adenopathy. Differential diagnosis is focal pneumonic infiltrate with reactive adenopathy. Cannot exclude neoplasm. Recommend close followup CT in the next several weeks. If findings do not resolve then consider PET CT for evaluation of neoplasm. Familia Benoit MD Objective Remarks GENERAL: This is a well-nourished, well-developed patient, alert without complaints CARDIOVASCULAR: Regular rate and rhythm without murmurs, gallops, or rubs. RESPIRATORY: Improved respiratory sounds without wheezes or crackles GASTROINTESTINAL: Abdomen soft, non-tender, nondistended. Normal active bowel sounds MUSCULOSKELETAL: Extremities without clubbing, cyanosis, or edema. NEURO: Alert & Oriented x4 to person, place, time, situation. Moves all ext x4 A/P Problem List: (1) Elevated troponin ICD Code: R74.8 - Abnormal levels of other serum enzymes Status: Acute Plan: Patient with acute coronary syndrome, it is unclear if this is a true cardiac event versus related to the acute pneumonia and rhabdomyolysis. We will continue to follow troponins, heparin,continue with beta-sydni, Plavix, aspirin Cardiology consult consult appreciated DC telemetry Echocardiogram shows EF of 40-45% patient presents with acute exacerbation of systolic heart failure Over 1.4 L out with Lasix Patient recently had outpatient evaluation (2) Pneumonia ICD Code: J18.9 - Pneumonia, unspecified organism Status: Acute Plan: Continue with IV Rocephin and doxycycline for community acquired pneumonia Chest x-ray unremarkable for acute changes, shows pneumonia Patient with continued fevers, ID consult pending (3) Hyponatremia ICD Code: E87.1 - Hypo-osmolality and hyponatremia Status: Acute Plan: Resolved (4) Rhabdomyolysis ICD Code: M62.82 - Rhabdomyolysis Plan: Improved (5) DM2 (diabetes mellitus, type 2) ICD Code: E11.9 - Type 2 diabetes mellitus without complications Plan: Continue with diabetic diet, hold metformin Continue with Januvia and Amaryl for now Follow-up sliding scale as needed Discharge Planning Likely to inpatient rehab pending resolution of fever Amy Gonzales MD December 30, 2017 10:48
[2017-12-30] MEDS: ENOXAPARIN SODIUM 40 MG/0.4 ML SYRINGE SQ SCH (10:49)
--- NOTE | 2017-12-30 15:58 | PD.CONS ---
History of Present Illness Service Infectious disease Consult Requested By Dr Amy Gonzales Reason for Consult Fever Primary Care Physician Unknown Diagnoses: (1) Pneumonia (2) Rhabdomyolysis (3) DM2 (diabetes mellitus, type 2) History of Present Illness 82 M with known h/o diabetes- came to the hospital because of extreme weakness, unsteady gait and frequent falls. Found to have a pneumonia and started on IV Ceftriaxone and Azithromycin - still running fevers. Patient c/o non productive cough and dyspnea . Review of Systems Constitutional: COMPLAINS OF: Fatigue, Fever Endocrine: DENIES: Polyuria Eyes: DENIES: Eye inflammation, Eye pain Ears, nose, mouth, throat: DENIES: Nasal discharge, Oral lesions, Running Nose Respiratory: COMPLAINS OF: Cough, Wheezing, Shortness of breath, DENIES: Snoring, Hemoptysis, Sputum production Cardiovascular: DENIES: Chest pain, Palpitations Gastrointestinal: COMPLAINS OF: Anorexia, DENIES: Abdominal pain, Constipation , Diarrhea Genitourinary: DENIES: Urinary frequency Musculoskeletal: COMPLAINS OF: Muscle aches Integumentary: DENIES: Abnormal pigmentation Hematologic/lymphatic: DENIES: Lymphadenopathy Neurologic: COMPLAINS OF: Abnormal gait, DENIES: Headache Psychiatric: DENIES: Confusion, Hallucinations Past Family Social History Allergies: Coded Allergies: No Known Allergies (Verified Adverse Reaction, Unknown, 12/26/17) Past Medical History COPD Diabetes mellitus type 2 Coronary artery disease with a history of cardiac bypass Hyperlipidemia Past Surgical History Cholecystectomy Cardiac bypass TURP Reported Medications Reviewed in the EMR Allergies: Coded Allergies: No Known Allergies (Verified Adverse Reaction, Unknown, 12/26/17) Active Ordered Medications Reviewed in the EMR Family History Mother in childbirth, father from a bleeding issue Social History No tobacco or alcohol dependency, lives with his family Past smoker Has a cat No recent travel Physical Exam Vital Signs Vital Signs Date Time Temp Pulse Resp B/P (MAP) Pulse Ox O2 Delivery O2 Flow Rate FiO2 12/30/17 11:51 98.4 79 20 122/57 (78) 93 12/30/17 11:49 18 12/30/17 08:21 100.0 77 20 109/65 (80) 94 12/30/17 02:00 99.5 12/30/17 00:00 102.4 106 22 145/74 (97) 90 12/29/17 20:00 96.7 97 22 139/71 (93) 91 12/29/17 16:00 100.1 71 19 147/65 (92) 95 Physical Exam GENERAL: This is a wa pleasant elderly patient SKIN: No rashes, ecchymoses or lesions. Cool and dry. HEAD: Atraumatic. Normocephalic. No temporal or scalp tenderness. EYES: Pupils equal round and reactive. Extraocular motions intact. No scleral icterus. No injection or drainage. ENT: Nose without bleeding, purulent drainage or septal hematoma. Throat without erythema, tonsillar hypertrophy or exudate. Uvula midline. Airway patent. Poor dentition NECK: Trachea midline. No JVD or lymphadenopathy. Supple, nontender, no meningeal signs. CARDIOVASCULAR: Regular rate and rhythm without murmurs, gallops, or rubs. RESPIRATORY: Clear to auscultation. Breath sounds equal bilaterally with wheezes and rhonchi. GASTROINTESTINAL: Abdomen soft, non-tender, nondistended. No hepato-splenomegaly , or palpable masses. No guarding. MUSCULOSKELETAL: Extremities without clubbing, cyanosis, or edema. No joint tenderness, effusion, or edema noted. No calf tenderness. Negative Homans sign bilaterally. NEUROLOGICAL: Awake and alert. Cranial nerves II through XII intact. Motor and sensory grossly within normal limits. Five out of 5 muscle strength in all muscle groups. Normal speech. Laboratory Laboratory Tests Test 12/30/17 05:25 Total Creatine Kinase 735 Creatine Kinase MB 3.3 Creatine Kinase MB % 0.4 Date/Time Source Procedure Growth Status 12/26/17 22:40 Blood Peripheral Aerobic Blood Culture - Preliminary NO GROWTH IN 4 DAYS Resulted 12/26/17 22:40 Blood Peripheral Anaerobic Blood Culture - Preliminary NO GROWTH IN 4 DAYS Resulted 12/28/17 05:00 Stool Stool Stool Occult Blood (JONA) - Final HEMOCCULT NEGATIVE Complete 12/26/17 22:35 Nasal Washing Influenza Types A,B Antigen (JONA) - Final NEGATIVE FOR FLU A AND B ANTIGEN.... Complete Result Diagram: 12/29/1745 12/29/17544 Assessment and Plan Problem List: (1) Pneumonia ICD Codes: J18.9 - Pneumonia, unspecified organism Status: Acute Plan: Blood cultures and Flu test negative Check Sputum Continue Doxy Stop Ceftriaxone Zosyn 3.375 g IV q6hrs Start Nebulizer treatments (2) Rhabdomyolysis ICD Codes: M62.82 - Rhabdomyolysis (3) DM2 (diabetes mellitus, type 2) ICD Codes: E11.9 - Type 2 diabetes mellitus without complications Alexandrea Braun MD December 30, 2017 15:58
[2017-12-30] MEDS: PANTOPRAZOLE SOD 40 MG DELAYED RELEASE TAB PO SCH (17:30)
[2017-12-30 18:10] LABS: BILIRUBIN, URINE NEG (NEG); BLOOD, URINE NEG (NEG); GLUCOSE,URINE 1000 OR GREATER mg/dL (NEG); KETONE, URINE NEG (NEG); NITRITE,URINE NEG (NEG); PH, URINE 5.5 (5.0-8.5); URINE COLOR YELLOW (YELLW/STRAW); URINE LEUKOCYTE ESTERASE NEG (NEG)
[2017-12-30 18:17] LABS: RBC, URINE 0-2 /hpf (0-3); SQUAMOUS EPITHELIAL CELL URINE 0-5 /hpf (0-5); WBC, URINE 0-2 /hpf (0-5)
[2017-12-30] MEDS: PIPERACIL-TAZO 3.375 GM PREMIX 50 ML IV SCH ×2 (18:42→23:05)
[2017-12-30] MEDS: RESP: ALBUTEROL 2.5 MG/IPRATROPIUM 0.5 MG NEB (SCH) NEB (20:12)
[2017-12-30] MEDS: guaiFENesin E.R. 600 MG TAB PO SCH (20:24)
[2017-12-30] MEDS: hydrOXYzine HCL 25 MG TAB PO SCH (20:25)
[2017-12-31] VITALS: BP 125/63; PULSE 68; RESP 20; TEMP 100.1; O2SAT 86; O2SAT 95
[2017-12-31 04:01] VITALS: TEMP 98.4
[2017-12-31] MEDS: PIPERACIL-TAZO 3.375 GM PREMIX 50 ML IV SCH ×2 (05:28→11:00)
[2017-12-31] MEDS: RESP: ALBUTEROL 2.5 MG/IPRATROPIUM 0.5 MG NEB (SCH) NEB ×2 (07:23→14:59)
[2017-12-31 07:26] VITALS: O2SAT 97
[2017-12-31 08:00] VITALS: BP 132/61; PULSE 71; RESP 19; TEMP 97.6; O2SAT 94
[2017-12-31] MEDS: INSULIN ASPART SUPPLEMENTAL SCALE SQ SCH ×2 (08:00→12:00)
[2017-12-31] MEDS: PANTOPRAZOLE SOD 40 MG DELAYED RELEASE TAB PO SCH (10:09)
[2017-12-31] MEDS: ENOXAPARIN SODIUM 40 MG/0.4 ML SYRINGE SQ SCH (10:09)
[2017-12-31] MEDS: ASPIRIN 325 MG TAB PO SCH (10:10)
[2017-12-31] MEDS: CARVEDILOL 6.25 MG TAB PO SCH (10:10)
[2017-12-31] MEDS: FUROSEMIDE 20 MG TAB PO SCH (10:10)
[2017-12-31] MEDS: DOCUSATE SODIUM 50 MG/SENNA 8.6 MG TAB PO SCH (10:10)
[2017-12-31] MEDS: GLIMEPIRIDE 4 MG TAB PO SCH (10:10)
[2017-12-31] MEDS: DOXYCYCLINE HYCLATE 100 MG TAB PO SCH (10:10)
[2017-12-31] MEDS: guaiFENesin E.R. 600 MG TAB PO SCH (10:10)
[2017-12-31] MEDS: CLOPIDOGREL 75 MG TAB PO SCH (10:10)
[2017-12-31] MEDS: SODIUM CHLORIDE 0.9% FLUSH 10 ML FLUSH IV FLUSH SCH (10:11)
--- NOTE | 2017-12-31 11:11 | HHI.DCPOC ---
Discharge Care Plan Diagnosis: (1) DM2 (diabetes mellitus, type 2) (2) Pneumonia (3) Rhabdomyolysis (4) Hyponatremia Goals to Promote Your Health * To prevent worsening of your condition and complications * To maintain your health at the optimal level Directions to Meet Your Goals Take your medications as prescribed Follow your dietary instruction Follow activity as directed Keep your appointments as scheduled Take your immunizations and boosters as scheduled If your symptoms worsen call your PCP, if no PCP go to Urgent Care Center or Emergency Room Smoking is Dangerous to Your Health. Avoid second hand smoke Call the 24-hour hour crisis hotline for domestic abuse at Amy Gonzales MD December 31, 2017 11:11
[2017-12-31] MEDS ORDERED: NOVOLOGSS SQ (11:16)
[2017-12-31] MEDS ORDERED: FURO20TA PO (11:16)
[2017-12-31] MEDS ORDERED: ACET325T15 PO (11:16)
[2017-12-31] MEDS ORDERED: Albuterol-Ipratropium Neb NEB (11:16)
[2017-12-31] MEDS ORDERED: DOXY100T PO (11:16)
[2017-12-31] MEDS ORDERED: PANT40TA3 PO (11:16)
[2017-12-31] MEDS ORDERED: ASA325 PO (11:16)
[2017-12-31] MEDS ORDERED: guaiFENesin ER PO (11:16)
[2017-12-31] MEDS ORDERED: AUGM875T3 PO (11:17)
[2017-12-31 12:00] VITALS: BP 135/60; PULSE 71; RESP 18; TEMP 97.7; O2SAT 95
--- NOTE | 2017-12-31 13:30 | HHI.DS ---
Discharge Summary Admission Date December 27, 2017 at 10:23 Discharge Date: December 31, 2017 Admitting Diagnosis Pneumonia/elevated troponin/hyponatremia (1) Elevated troponin ICD Code: R74.8 - Abnormal levels of other serum enzymes Status: Acute (2) Pneumonia ICD Code: J18.9 - Pneumonia, unspecified organism Status: Acute (3) Hyponatremia ICD Code: E87.1 - Hypo-osmolality and hyponatremia Status: Acute (4) Rhabdomyolysis ICD Code: M62.82 - Rhabdomyolysis (5) DM2 (diabetes mellitus, type 2) ICD Code: E11.9 - Type 2 diabetes mellitus without complications Procedures none Brief History - From Admission This patient is an 82-year-old gentleman with a history of hypertension, coronary disease and diabetes who is increased shortness of breath and weakness over the last 2 days. Patient was seen in the emergency room yesterday after a fall and increased weakness. He was mildly hypoxemic but the patient recovered quickly and was discharged home on oral antibiotics. He has come back to the hospital for further symptoms. At this time patient appears to have acute pneumonia with imaging on my report and review shows likely early pneumonia. Patient also hyponatremic with elevated cardiac enzymes and rhabdomyolysis. Patient is hypoxemic at 89%. He has a history of coronary disease follows up with Dr. Mcconnell. Patient reports no kim chest pain and no dyspnea on exertion. He does take Plavix and Coreg for his heart as well as losartan. Patient had CBC/BMP: 12/29/17 0545 12/29/17 0545 Significant Findings Laboratory Tests Test 12/29/17 05:45 12/30/17 05:25 12/30/17 17:45 Red Blood Count 4.39 MIL/MM3 (4.50-5.90) Neutrophils (%) (Auto) 70.4 % (16.0-70.0) Monocytes (%) (Auto) 15.3 % (0.0-8.0) Monocytes # (Auto) 1.2 TH/MM3 (0-0.9) Random Glucose 117 MG/DL (74-106) Albumin 3.1 GM/DL (3.4-5.0) Calcium Level 8.2 MG/DL (8.5-10.1) Alkaline Phosphatase 40 U/L (45-117) Aspartate Amino Transf (AST/SGOT) 80 U/L (15-37) Total Bilirubin 1.2 MG/DL (0.2-1.0) Sodium Level 133 MEQ/L (136-145) Total Creatine Kinase 1508 U/L (39-308) 735 U/L (39-308) Creatine Kinase MB 5.3 NG/ML (0.5-3.6) Urine Glucose (UA) 1000 OR GREATER mg/dL Imaging Last Impressions Chest X-Ray 12/28/17 0000 Signed Impressions: Service Date/Time: Thursday, December 28, 2017 13:51 - CONCLUSION: 1. No acute abnormality or significant interval change. Shay Qureshi MD CT Angiography 12/27/17 0016 Signed Impressions: Service Date/Time: Tuesday, December 26, 2017 23:59 - CONCLUSION: 1. Negative for pulmonary embolus. 2. Focal consolidation left upper lobe associated with mild left hilar and subcarinal adenopathy. Differential diagnosis is focal pneumonic infiltrate with reactive adenopathy. Cannot exclude neoplasm. Recommend close followup CT in the next several weeks. If findings do not resolve then consider PET CT for evaluation of neoplasm. Familia Benoit MD PE at Discharge GENERAL: This is a well-nourished, well-developed patient, alert without complaints CARDIOVASCULAR: Regular rate and rhythm without murmurs, gallops, or rubs. RESPIRATORY: Improved respiratory sounds without wheezes or crackles GASTROINTESTINAL: Abdomen soft, non-tender, nondistended. Normal active bowel sounds MUSCULOSKELETAL: Extremities without clubbing, cyanosis, or edema. NEURO: Alert & Oriented x4 to person, place, time, situation. Moves all ext x4 Pt update on day of discharge ptn doing better, afebrile dc plans discussed with patient and family Hospital Course Patient with acute coronary syndrome, it is unclear if this is a true cardiac event versus related to the acute pneumonia and rhabdomyolysis. Echocardiogram shows EF of 40-45% patient presents with acute exacerbation of systolic heart failure diuresed well with Lasix Patient recently had outpatient evaluation per cardiac consult Augmentin and doxycycline Rx after ID consult hyponatremia Resolved rhabdo improved DM managed with diabetic diet, hold metformin Continue with Januvia and Amaryl for now Pt Condition on Discharge: Good Discharge Disposition: Rehab Inpatient Discharge Time: <= 30 minutes Discharge Instructions DIET: Follow Instructions for: Heart Healthy Diet Activities you can perform: Regular-No Restrictions New Medications: Amoxicillin-Clavulanate (Augmentin) 875-125 Mg Tab 1 TAB PO BID for Infection, #10 TAB 0 Refills Acetaminophen (Eq Acetaminophen) 325 Mg Tab 650 MG PO Q4H PRN for TEMP > 100.4, #31 TAB Aspirin (Px Aspirin) 325 Mg Tab 325 MG PO DAILY for heart, #31 TAB Doxycycline Hyclate (Doxycycline Hyclate) 100 Mg Tab 100 MG PO Q12HR for Infection, #14 TAB Furosemide (Furosemide) 20 Mg Tab 20 MG PO DAILY for edema, #31 TAB Insulin Aspart Inj (Novolog Inj) 100 Unit/Ml Inj 1 UNIT SQ ACHS SLIDING SCALE for Blood Sugar Management, #100 INJECTION Pantoprazole (Pantoprazole) 40 Mg Tab 40 MG PO DAILY for stomach, #14 TAB [Albuterol-Ipratropium Neb] () 1 AMPULE NEBU 1 AMPULE NEB Q6HR WHILE AWAKE NEB for breathing tx, #90 [guaiFENesin ER] () 600 MG TABCR 600 MG PO BID, #14 Continued Medications: Atorvastatin (Atorvastatin) 20 Mg Tab 20 MG PO HS for Cholesterol Management, #30 TAB 0 Refills Carvedilol (Carvedilol) 6.25 Mg Tab 6.25 MG PO BID, #60 TAB 0 Refills Clopidogrel (Clopidogrel) 75 Mg Tab 75 MG PO DAILY for Blood Clot Prevention, #30 TAB 0 Refills Cyanocobalamin (Vitamin B-12) 1,000 Mcg Subl 1000 MCG SL DAILY for Nutritional Supplement, TAB.SL 0 Refills Glimepiride (Glimepiride) 4 Mg Tab 4 MG PO DAILY for Blood Sugar Management, #30 TAB 0 Refills Take with breakfast or first main meal Hydroxyzine HCl (Hydroxyzine HCl) 25 Mg Tab 25 MG PO HS, TAB 0 Refills Levofloxacin (Levaquin) 750 Mg Tablet 750 MG PO DAILY for Infection for 5 Days, #5 TAB 0 Refills Losartan (Losartan) 25 Mg Tab 25 MG PO DAILY for Blood Pressure Management, #30 TAB 0 Refills Metformin (Metformin) 1,000 Mg Tab 1000 MG PO DAILY for Blood Sugar Management, #30 TAB 0 Refills With a meal Sitagliptin (Januvia) 100 Mg Tab 100 MG PO DAILY for Blood Sugar Management, #30 TAB 0 Refills Trazodone (Trazodone) 50 Mg Tab 50 MG PO HS for Control Depression, #30 TAB 0 Refills Amy Gonzales MD December 31, 2017 13:30
== END 2017-12-31 15:58 | DRG 291 ==
LOC: PHED 21:40 → UNDOADMIN 12-27 01:00 → PHEDA 12-27 01:00 → INTOOBSV 12-27 01:03 → PHEDA 12-27 01:03 → PH3B 12-27 02:27 → OBSVTOIN 12-27 10:23 → PH3A 12-27 20:47
PROVIDERS: ADMIT Hospitalist; ATTEND Hospitalist
DX: I13.0 Hypertensive heart and chronic kidney disease with heart failure and stage 1 through stage 4 chronic kidney disease, or unspecified chronic kidney disease (principal); J18.9 Pneumonia, unspecified organism; J44.0 Chronic obstructive pulmonary disease with (acute) lower respiratory infection; M62.82 Rhabdomyolysis; I50.23 Acute on chronic systolic (congestive) heart failure; E87.1 Hypo-osmolality and hyponatremia; I25.110 Atherosclerotic heart disease of native coronary artery with unstable angina pectoris; E11.22 Type 2 diabetes mellitus with diabetic chronic kidney disease; N18.9 Chronic kidney disease, unspecified; E78.5 Hyperlipidemia, unspecified; R26.81 Unsteadiness on feet; I25.2 Old myocardial infarction; R09.02 Hypoxemia; R29.6 Repeated falls; Z79.84 Long term (current) use of oral hypoglycemic drugs; Z86.73 Personal history of transient ischemic attack (TIA), and cerebral infarction without residual deficits; Z87.891 Personal history of nicotine dependence; Z95.1 Presence of aortocoronary bypass graft
CPT/HCPCS: 71045; 71046; 71275; 80048; 80053; 81001; 82272; 82550; 82552; 82948; 83605; 83880; 84484; 85025; 85027; 85610; 85730; 87040; 87070; 87205; 87804; 93005; 93306; 94640; 94664; G8987-GP; G8988-GP; J0456; J0696; J1644; J1650; J1815; J1940; J2543; J7030; J7050; J7120; Q9967